=== PATIENT | male | born 1945 | race Caucasian/White ===

== ENCOUNTER 2016-09-12 21:49 | Emergency (ER) | payer BC, MEDICARE ==
[~2016-09-12] VITALS: Ht 168.9 cm; Wt 105.5 kg
[~2016-09-12 21:49] MED LIST: ALFU10TA19; AMLO2.5T PO; ASPI-557 PO; CHOL400C7; FENO150C4; METF10002; METO25TA6; MULT-57; OMEG300C; PRAS10TA5; PRED10TA23 PO; SERT50TA12; TADA5TAB
--- OUTSIDE RECORDS SUMMARY | 2016-09-12 21:53 | XMS REPORT | Referral Summary ---
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 Name Role Phone Logan Butler Primary Care Physician [phone] Encounter VC Date(s): 03/10/15 - 03/10/15 [facility], Family [address] [place] [id number] Discharge Disposition: 01-Home or Self Care Attending Physician: Zhao Butler MD Admitting Physician: Zhao Butler MD Vital Signs Most recent to 1 oldest [Reference Range]: Blood Pressure 126/78 mmHg [90-140/60-90 mmHg] (03/10/15 10:25 AM) Problem List Condition Effective Dates Status Health Status Informant Atypical Active depression(Confirmed ) Chest 2005 Active pain(Confirmed) Diabetes mellitus 2004 Active type 2(Confirmed) Elevated blood Active pressure (not hypertension)(Confir med) Gout(Confirmed) Active Hearing 2011 Active loss(Confirmed) Hypercholesterolemia 2008 Active (Confirmed) Hypertension(Confirm Active ed) Kidney 2012 Active disease(Confirmed) Obesity(Confirmed) 1978 Active Osteoarthritis(Confi Active rmed) Overweight(Confirmed 1942 Active ) Allergies, Adverse Reactions, Alerts Substance Reaction Severity Status iodine ITCHING/ HIVES Active Medications alfuzosin 10 mg oral tablet, extended release See Instructions, TAKE ONE TABLET BY MOUTH DAILY, # 90 tabs, eRx: [facility] #[id number], TAKE ONE TABLET BY MOUTH DAILY Start Date: 07/30/15 Status: Ordered allopurinol 300 mg oral tablet 1 tabs, Oral, Daily, # 30 tabs, 0 Refill(s) Start Date: 12/23/13 Status: Ordered Amaryl 2 mg oral tablet 1 tabs, Oral, BID, Patient needs labwork done in 3 months., # 60 tabs, 2 Refill( s), Pharmacy: [facility] #[id number], 1 tabs Oral BID,Instr:Patient needs labwork done in 3 months. Start Date: 09/29/14 Status: Ordered Aspir 81 81 mg, Oral, Daily, 0 Refill(s) Start Date: 12/23/13 Status: Ordered Cialis 5 mg oral tablet See Instructions, TAKE ONE TABLET BY MOUTH DAILY, # 30 tabs, 1 Refill(s), eRx: [facility] #[id number], TAKE ONE TABLET BY MOUTH DAILY Start Date: 09/02/15 Status: Ordered Effient 10 mg oral tablet See Instructions, TAKE ONE TABLET BY MOUTH DAILY, # 30 tabs, 2 Refill(s), eRx: [facility] #[id number], TAKE ONE TABLET BY MOUTH DAILY Start Date: 07/17/15 Status: Ordered Fish Oil 1000 mg oral capsule 1 caps, Oral, BID, # 60 caps, 0 Refill(s) Start Date: 12/23/13 Status: Ordered Lipofen 150 mg oral capsule See Instructions, TAKE ONE CAPSULE BY MOUTH DAILY WITH FOOD, # 90 caps, 1 Refill (s), eRx: [facility] #[id number], TAKE ONE CAPSULE BY MOUTH DAILY WITH FOOD Start Date: 05/13/15 Status: Ordered metFORMIN 500 mg oral tablet, extended release See Instructions, TAKE TWO TABLETS BY MOUTH TWICE A DAY, # 120 tabs, 1 Refill(s) , eRx: [facility] #[id number], TAKE TWO TABLETS BY MOUTH TWICE A DAY Start Date: 08/27/15 Status: Ordered Metoprolol Tartrate 25 mg oral tablet See Instructions, TAKE ONE TABLET BY MOUTH TWICE A DAY. TAKE WITH MEALS. Pt needs appointment for more refills, # 60 tabs, 0 Refill(s), Pharmacy: [facility] #[id number], TAKE ONE TABLET BY MOUTH TWICE A DAY. TAKE WITH MEALS. Pt needs appointmen... Start Date: 09/11/15 Status: Ordered Norvasc 2.5 mg oral tablet See Instructions, TAKE ONE TABLET BY MOUTH ONE TIME A DAY, # 30 tabs, eRx: [facility] #[id number], TAKE ONE TABLET BY MOUTH ONE TIME A DAY Start Date: 08/27/15 Status: Ordered Simcor 500 mg-20 mg oral tablet, extended release See Instructions, TAKE ONE TABLET BY MOUTH EVERY NIGHT AT BEDTIME, # 90 unknown unit, 2 Refill(s), eRx: [facility] #[id number], TAKE ONE TABLET BY MOUTH EVERY NIGHT AT BEDTIME Start Date: 03/17/15 Status: Ordered Vitamin D3 5000 intl units oral tablet 1 tabs, Oral, Daily, # 100 tabs, 0 Refill(s) Start Date: 12/23/13 Status: Ordered Zoloft 100 mg oral tablet See Instructions, TAKE ONE TABLET BY MOUTH DAILY, # 30 tabs, 3 Refill(s), eRx: [facility] #[id number], TAKE ONE TABLET BY MOUTH DAILY Start Date: 08/18/15 Status: Ordered Results Chemistry Most recent to 1 oldest [Reference Range]: Sodium Lvl [135-144 141 mEq/L mEq/L] (03/10/15 10:58 AM) Potassium Lvl 4.4 mEq/L [3.5-5.2 mEq/L] (03/10/15 10:58 AM) Chloride [99-111 105 mEq/L mEq/L] (03/10/15 10:58 AM) CO2 [23-31 mEq/L] 27 mEq/L (03/10/15 10:58 AM) AGAP [3-20] 9 (03/10/15 10:58 AM) BUN [8-26 mg/dL] 16 mg/dL (03/10/15 10:58 AM) Glucose Lvl [70-99 278 mg/dL mg/dL] *HI* (03/10/15 10:58 AM) Creatinine Lvl 1.22 mg/dL [0.72-1.25 mg/dL] (03/10/15 10:58 AM) eGFR [>60 mL/min] 58 mL/min 1 *ABN* (03/10/15 10:58 AM) Calcium Lvl 9.6 mg/dL [8.9-10.5 mg/dL] (03/10/15 10:58 AM) 1Result Comment: Multiply eGFR results by 1.21 for race. Immunizations Vaccine Date Refusal Reason influenza virus vaccine, inactivated 03/07/14 pneumococcal 23-polyvalent vaccine 04/21/10 Procedures Procedure Date Related Diagnosis Body Site Collection of venous blood by venipuncture 03/10/15 Collection of venous blood by venipuncture 03/10/15 Collection of venous blood by venipuncture 03/10/15 Angioplasty Cardiac catheterization x5 Stent x3 Social History Social History Type Response Smoking Status Former smoker; Type: Cigarettes Assessment and Plan Extracted from: Title: Ambulatory Patient Education Author: Zhao Butler MD Date: 03/10/15 Family [facility] Depression Depression refers to feeling sad, low, down in the dumps, blue, gloomy, or empty. In general, there are two kinds of depression: 1. Normal sadness or normal grief. This kind of depression is one that we all feel from time to time after upsetting life experiences, such as the loss of a job or the ending of a relationship. This kind of depression is considered normal, is short lived, and resolves within a few days to 2 weeks. Depression experienced after the loss of a loved one (bereavement) often lasts longer than 2 weeks but normally gets better with time. 2. Clinical depression. This kind of depression lasts longer than normal sadness or normal grief or interferes with your ability to function at home, at work, and in school. It also interferes with your personal relationships. It affects almost every aspect of your life. Clinical depression is an illness. Symptoms of depression can also be caused by conditions other than those mentioned above, such as: Physical illness. Some physical illnesses, including underactive thyroid gland (hypothyroidism), severe anemia, specific types of cancer, diabetes, uncontrolled seizures, heart and lung problems, strokes, and chronic pain are commonly associated with symptoms of depression. Side effects of some prescription medicine. In some people, certain types of medicine can cause symptoms of depression. Substance abuse. Abuse of alcohol and illicit drugs can cause symptoms of depression. SYMPTOMS Symptoms of normal sadness and normal grief include the following: Feeling sad or crying for short periods of time. Not caring about anything (apathy). Difficulty sleeping or sleeping too much. No longer able to enjoy the things you used to enjoy. Desire to be by oneself all the time (social isolation). Lack of energy or motivation. Difficulty concentrating or remembering. Change in appetite or weight. Restlessness or agitation. Symptoms of clinical depression include the same symptoms of normal sadness or normal grief and also the following symptoms: Feeling sad or crying all the time. Feelings of guilt or worthlessness. Feelings of hopelessness or helplessness. Thoughts of suicide or the desire to harm yourself (suicidal ideation). Loss of touch with reality (psychotic symptoms). Seeing or hearing things that are not real (hallucinations) or having false beliefs about your life or the people around you (delusions and paranoia). DIAGNOSIS The diagnosis of clinical depression is usually based on how bad the symptoms are and how long they have lasted. Your health care provider will also ask you questions about your medical history and substance use to find out if physical illness, use of prescription medicine, or substance abuse is causing your depression. Your health care provider may also order blood tests. TREATMENT Often, normal sadness and normal grief do not require treatment. However, sometimes antidepressant medicine is given for bereavement to ease the depressive symptoms until they resolve. The treatment for clinical depression depends on how bad the symptoms are but often includes antidepressant medicine, counseling with a mental health professional, or both. Your health care provider will help to determine what treatment is best for you. Depression caused by physical illness usually goes away with appropriate medical treatment of the illness. If prescription medicine is causing depression , talk with your health care provider about stopping the medicine, decreasing the dose, or changing to another medicine. Depression caused by the abuse of alcohol or illicit drugs goes away when you stop using these substances. Some adults need professional help in order to stop drinking or using drugs. SEEK IMMEDIATE MEDICAL CARE IF: You have thoughts about hurting yourself or others. You lose touch with reality (have psychotic symptoms). You are taking medicine for depression and have a serious side effect. FOR MORE INFORMATION National [place] on Mental Illness: www.ezequiel.org National [place] of Mental Health: www.nimh.nih.gov Document Released: 05/19/2001 Document Revised: 10/06/2014 Document Reviewed: [employer] Patient Information 2015 [employer] [facility]. This information is not intended to replace advice given to you by your health care provider. Make sure you discuss any questions you have with your health care provider. How to Avoid Diabetes Problems You can do a lot to prevent or slow down diabetes problems. Following your diabetes plan and taking care of yourself can reduce your risk of serious or life-threatening complications. Below, you will find certain things you can do to prevent diabetes problems. MANAGE YOUR DIABETES Follow your health care provider's, nurse educator's, and dietitian's instructions for managing your diabetes. They will teach you the basics of diabetes care. They can help answer questions you may have. Learn about diabetes and make healthy choices regarding eating and physical activity. Monitor your blood glucose level regularly. Your health care provider will help you decide how often to check your blood glucose level depending on your treatment goals and how well you are meeting them. DO NOT USE NICOTINE Nicotine and diabetes are a dangerous combination. Nicotine raises your risk for diabetes problems. If you quit using nicotine, you will lower your risk for heart attack, stroke, nerve disease, and kidney disease. Your cholesterol and your blood pressure levels may improve. Your blood circulation will also improve. Do not use any tobacco products, including cigarettes, chewing tobacco , or electronic cigarettes. If you need help quitting, ask your health care provider. KEEP YOUR BLOOD PRESSURE UNDER CONTROL Keeping your blood pressure under control will help prevent damage to your eyes , kidneys, heart, and blood vessels. Blood pressure consists of two numbers. The top number should be below 120, and the bottom number should be below 80 ( 120/80). Keep your blood pressure as close to these numbers as you can. If you already have kidney disease, you may want even lower blood pressure to protect your kidneys. Talk to your health care provider to make sure that your blood pressure goal is right for your needs. Meal planning, medicines, and exercise can help you reach your blood pressure target. Have your blood pressure checked at every visit with your health care provider. KEEP YOUR CHOLESTEROL UNDER CONTROL Normal cholesterol levels will help prevent heart disease and stroke. These are the biggest health problems for people with diabetes. Keeping cholesterol levels under control can also help with blood flow. Have your cholesterol level checked at least once a year. Your health care provider may prescribe a medicine known as a statin. Statins lower your cholesterol. If you are not taking a statin, ask your health care provider if you should be. Meal planning, exercise, and medicines can help you reach your cholesterol targets. SCHEDULE AND KEEP YOUR ANNUAL PHYSICAL EXAMS AND EYE EXAMS Your health care provider will tell you how often he or she wants to see you depending on your plan of treatment. It is important that you keep these appointments so that possible problems can be identified early and complications can be avoided or treated. Every visit with your health care provider should include your weight, blood pressure, and an evaluation of your blood glucose control. Your hemoglobin A1c should be checked: At least twice a year if you are at your goal. Every 3 months if there are changes in treatment. If you are not meeting your goals. Your blood lipids should be checked yearly. You should also be checked yearly to see if you have protein in your urine (microalbumin). Schedule a dilated eye exam within 5 years of your diagnosis if you have type 1 diabetes, and then yearly. Schedule a dilated eye exam at diagnosis if you have type 2 diabetes, and then yearly. All exams thereafter can be extended to every 2 to 3 years if one or more exams have been normal. KEEP YOUR VACCINES CURRENT The flu vaccine is recommended yearly. The formula for the vaccine changes every year and needs to be updated for the best protection against current viruses. It is recommended that people with diabetes who are over 65 years old get the pneumonia vaccine. In some cases, two separate shots may be given. Ask your health care provider if your pneumonia vaccination is up-to-date. However, there are some instances where another vaccine is recommended. Check with your health care provider. TAKE CARE OF YOUR FEET Diabetes may cause you to have a poor blood supply (circulation) to your legs and feet. Because of this, the skin may be thinner, break easier, and heal more slowly. You also may have nerve damage in your legs and feet, causing decreased feeling. You may not notice minor injuries to your feet that could lead to serious problems or infections. Taking care of your feet is very important. Visual foot exams are performed at every routine medical visit. The exams check for cuts, injuries, or other problems with the feet. A comprehensive foot exam should be done yearly. This includes visual inspection as well as assessing foot pulses and testing for loss of sensation. You should also do the following: Inspect your feet daily for cuts, calluses, blisters, ingrown toenails, and signs of infection, such as redness, swelling, or pus. Wash and dry your feet thoroughly, especially between the toes. Avoid soaking your feet regularly in hot water baths. Moisturize dry skin with lotion, avoiding areas between your toes. Cut toenails straight across and file the edges. Avoid shoes that do not fit well or have areas that irritate your skin. Avoid going barefooted or wearing only socks. Your feet need protection. TAKE CARE OF YOUR TEETH People with poorly controlled diabetes are more likely to have gum (periodontal ) disease. These infections make diabetes harder to control. Periodontal diseases, if left untreated, can lead to tooth loss. [place] your teeth twice a day, floss, and see your dentist for checkups and cleaning every 6 months, or 2 times a year. ASK YOUR HEALTH CARE PROVIDER ABOUT TAKING ASPIRIN Taking aspirin daily is recommended to help prevent cardiovascular disease in people with and without diabetes. Ask your health care provider if this would benefit you and what dose he or she would recommend. DRINK RESPONSIBLY Moderate amounts of alcohol (less than 1 drink per day for adult women and less than 2 drinks per day for adult men) have a minimal effect on blood glucose if ingested with food. It is important to eat food with alcohol to avoid hypoglycemia. People should avoid alcohol if they have a history of alcohol abuse or dependence, if they are , and if they have liver disease, pancreatitis, advanced neuropathy, or severe hypertriglyceridemia. LESSEN STRESS Living with diabetes can be stressful. When you are under stress, your blood glucose may be affected in two ways: Stress hormones may cause your blood glucose to rise. You may be distracted from taking good care of yourself. It is a good idea to be aware of your stress level and make changes that are necessary to help you better manage challenging situations. Support groups, planned relaxation, a hobby you enjoy, meditation, healthy relationships, and exercise all work to lower your stress level. If your efforts do not seem to be helping, get help from your health care provider or a trained mental health professional. Document Released: 02/07/2012 Document Revised: 10/06/2014 Document Reviewed: [facility] Patient Information 2015 [facility], [facility]. This information is not intended to replace advice given to you by your health care provider. Make sure you discuss any questions you have with your health care provider. No follow up information was provided. Extracted from: Title: Office Visit Note Author: Zhao Butler MD Date: 03/10/15 Assessment/Plan Atypical depression Will increase the Zoloft to 100mg daily and follow up in one month. Ordered: Office Visit Level 3 Est 77175 Diabetes mellitus type 2 Continue the current medications and encouraged to check sugars. Ordered: Hemoglobin A1c Office Visit Level 3 Est 90539 Hypercholesterolemia Ordered: Cholesterol HDL LDL Direct Office Visit Level 3 Est 55192 Triglycerides Hypertension Ordered: Comprehensive Metabolic Panel Office Visit Level 3 Est 67392 Uric Acid Orders: sertraline, 100 mg 1 tabs, Oral, Daily, # 30 tabs, 4 Refill(s), Pharmacy: [facility] #[id number], 1 tabs Oral Daily
--- OUTSIDE RECORDS SUMMARY | 2016-09-12 21:53 | XMS REPORT | Referral Summary ---
Author Author [facility] Organization [facility] Address Unknown Phone Unavailable Care Team Providers Care Emd Teacher Name Role Phone Logan Butler Primary Care Physician [phone] Encounter VC Date(s): 12/24/15 - 12/24/15 [facility] Family [address] [place] [id number] Discharge Diagnosis: Diabetes mellitus type 2 Discharge Disposition: 01-Home or Self Care Attending Physician: Zhao Butler MD Admitting Physician: Zhao Butler MD Vital Signs Most recent to 1 oldest [Reference Range]: Peripheral Pulse 72 bpm Rate [60-100 bpm] (12/24/15 2:30 PM) Blood Pressure 138/70 mmHg [90-140/60-90 mmHg] (12/24/15 2:30 PM) Problem List Condition Effective Dates Status Health Status Informant Atypical Active depression(Confirmed ) Chest 2004 Active pain(Confirmed) Diabetes mellitus 2004 Active type 2(Confirmed) Elevated blood Active pressure (not hypertension)(Confir med) Gout(Confirmed) Active Hearing 2010 Active loss(Confirmed) Hypercholesterolemia 2007 Active (Confirmed) Hypertension(Confirm Active ed) Kidney 2011 Active disease(Confirmed) Obesity(Confirmed) 1978 Active Osteoarthritis(Confi Active rmed) Overweight(Confirmed 194 Active ) Allergies, Adverse Reactions, Alerts Substance Reaction Severity Status iodine ITCHING/ HIVES Active Medications alfuzosin 10 mg oral tablet, extended release See Instructions, TAKE ONE TABLET BY MOUTH DAILY, # 90 tabs, eRx: [email or web address] #[id number], TAKE ONE TABLET BY MOUTH DAILY Start Date: 10/28/15 Status: Ordered amLODIPine 2.5 mg oral tablet See Instructions, TAKE ONE TABLET BY MOUTH ONE TIME A DAY, # 30 tabs, 5 Refill(s ), eRx: [email or web address] #[id number], TAKE ONE TABLET BY MOUTH ONE TIME A DAY Start Date: 12/04/15 Status: Ordered Aspir 81 81 mg, Oral, Daily, 0 Refill(s) Start Date: 12/23/13 Status: Ordered Cialis 5 mg oral tablet See Instructions, TAKE ONE TABLET BY MOUTH DAILY, # 30 tabs, eRx: [facility] #[id number], TAKE ONE TABLET BY MOUTH DAILY Start Date: 12/24/15 Status: Ordered Effient 10 mg oral tablet See Instructions, TAKE ONE TABLET BY MOUTH DAILY, # 30 tabs, eRx: [facility] #[id number], TAKE ONE TABLET BY MOUTH DAILY Start Date: 12/14/15 Status: Ordered fenofibrate 150 mg oral capsule See Instructions, TAKE ONE CAPSULE BY MOUTH DAILY WITH FOOD, # 90 caps, eRx: [facility] #[id number], TAKE ONE CAPSULE BY MOUTH DAILY WITH FOOD Start Date: 10/28/15 Status: Ordered Fish Oil 1000 mg oral capsule 1 caps, Oral, BID, # 60 caps, 0 Refill(s) Start Date: 12/23/13 Status: Ordered glimepiride 4 mg oral tablet See Instructions, TAKE ONE TABLET BY MOUTH DAILY, # 30 tabs, eRx: [facility] #[id number], TAKE ONE TABLET BY MOUTH DAILY Start Date: 12/14/15 Status: Ordered metFORMIN 500 mg oral tablet, extended release See Instructions, TAKE TWO TABLETS BY MOUTH TWICE A DAY, # 120 tabs, 2 Refill(s) , eRx: [facility] #[id number], TAKE TWO TABLETS BY MOUTH TWICE A DAY Start Date: 12/22/15 Status: Ordered Metoprolol Tartrate 25 mg oral tablet See Instructions, TAKE ONE TABLET BY MOUTH TWICE A DAY, WITH MEALS - NEEDS AN APPOINTMENT FOR MORE REFILLS., # 60 tabs, eRx: [facility] #[id number], TAKE ONE TABLET BY MOUTH TWICE A DAY, WITH MEALS - NEEDS AN APPOINTMENT FOR MORE REFILLS. Start Date: 12/14/15 Status: Ordered sertraline 100 mg oral tablet See Instructions, TAKE ONE TABLET BY MOUTH DAILY, # 30 tabs, 2 Refill(s), eRx: [facility] #[id number], TAKE ONE TABLET BY MOUTH DAILY Start Date: 12/14/15 Status: Ordered Simcor 500 mg-20 mg oral tablet, extended release See Instructions, TAKE ONE TABLET BY MOUTH EVERY NIGHT AT BEDTIME, # 90 unknown unit, 1 Refill(s), eRx: [facility] #[id number], TAKE ONE TABLET BY MOUTH EVERY NIGHT AT BEDTIME Start Date: 12/14/15 Status: Ordered Kaci BakeroStar 300 units/mL subcutaneous solution 13 units, SubCutaneous, Daily, # 4 mL, 2 Refill(s), Pharmacy: [facility] # [id number], Pt has savings card, 13 units SubCutaneous Daily Start Date: 12/24/15 Status: Ordered Results No data available for this section Immunizations Vaccine Date Refusal Reason influenza virus vaccine, inactivated 03/07/14 pneumococcal 23-polyvalent vaccine 04/21/10 Procedures Procedure Date Related Diagnosis Body Site Appendectomy 194 Angioplasty Cardiac catheterization x5 Stent x3 Social History Social History Type Response Smoking Status Former smoker; Type: Cigarettes Assessment and Plan Extracted from: Title: Ambulatory Patient Education Author: Karina Kam PA-C Date : 12/24/15 Family Medicine Insulin Treatment for Diabetes Diabetes is a disease that does not go away (chronic). It occurs when the body does not properly use the sugar (glucose) that is released from food after it is digested. Glucose levels are controlled by a hormone called insulin, which is made by your pancreas. Depending on the type of diabetes you have, either of the following will apply: The pancreas does not make any insulin (type 1 diabetes). The pancreas makes too little insulin, and the body cannot respond normally to the insulin that is made (type 2 diabetes). Without insulin, can occur. However, with the addition of insulin, blood sugar monitoring, and treatment, someone with diabetes can live a full and productive life. This document will discuss the role of insulin in your treatment and provide information about its use. HOW IS INSULIN GIVEN? Insulin is a medicine that can only be given by injection. Taking it by mouth makes it inactive because of the acid in your stomach. Insulin is injected under the skin by a syringe and needle, an insulin pen, a pump, or a jet injector. Your dose will be determined by your health care provider based on your individual needs. You will also be given guidance on which method of giving insulin is right for you. Remember that if you give insulin with a needle and syringe, you must do so using only a special insulin syringe made for this purpose. WHERE ON THE BODY SHOULD INSULIN BE INJECTED? Insulin is injected into the fatty layer of tissue just under your skin. Good places to inject insulin include the upper arm, the front and outer area of the thigh, the hips, and the abdomen. Giving your insulin in the abdomen is preferred because this provides the most rapid and consistent absorption. Avoid the area 2 inches (5 cm) around the navel and avoid injecting into areas on your body with scar tissue. In addition, it is important to rotate your injection sites with every shot to prevent irritation and improve absorption. WHAT ARE THE DIFFERENT TYPES OF INSULIN? If you have type 1 diabetes, you must take insulin to stay alive. Your body does not produce it. If you have type 2 diabetes, you might require insulin in addition to, or instead of, other medicines. In either case, proper use of insulin is critical to control your diabetes. There are a number of different types of insulin. Usually, you will give yourself injections, though others can be trained to give them to you. Some people have an insulin pump that delivers insulin continuously through a tube ( cannula) that is placed under the skin. Using insulin requires that you check your blood sugar several times a day. The exact number of times and time of day to check will vary depending on your type of diabetes, your type of insulin, and treatment goals. Your health care provider will direct you. Generally, different insulins have different properties. The following is a general guide. Specifics will vary by product, and new products are introduced periodically. Rapid-acting insulin starts working quickly (in as little as 5 minutes) and wears off in 4 to 6 hours (sometimes longer). This type of insulin works well when taken just before a meal to bring your blood sugar quickly back to normal. Short-acting insulin starts working in about 30 minutes and can last 6 to 10 hours. This type of insulin should be taken about 30 minutes before you start eating a meal. Intermediate-acting insulin starts working in 1-2 hours and wears off after about 10 to 18 hours. This insulin will lower your blood sugar for a longer period of time, but it will not be as effective in lowering your blood sugar right after a meal. Long-acting insulin mimics the small amount of insulin that your pancreas usually produces throughout the day. You need to have some insulin present at all times. It is crucial to the metabolism of brain cells and other cells. Long-acting insulin is meant to be used either once or twice a day. It is usually used in combination with other types of insulin, or in combination with other diabetes medicines. Discuss the type of insulin you are taking with your health care provider or pharmacist. You will then be aware of when the insulin can be expected to peak and when it will wear off. This is important to know so you can plan for meal times and periods of exercise. Your health care provider will usually have a strategy in mind when treating you with insulin. This will vary with your type of diabetes, your diabetes treatment goals, and your health history. It is important that you understand this strategy so you can be an active partner in treating your diabetes. Here are some terms you might hear: Basal insulin. This refers to the small amount of insulin that needs to be present in your blood at all times. Sometimes oral medicines will be enough. For other people, and especially for people with type 1 diabetes, insulin is needed. Usually, intermediate-acting or long-acting insulin is used once or twice a day to accomplish this. Prandial (meal-related) insulin. Your blood sugar will rise rapidly after a meal. Rapid-acting or short-acting insulin can be used right before the meal to bring your blood sugar back to normal quickly. You might be instructed to adjust the amount of insulin depending on how much carbohydrate (starch) is in your meal. Corrective insulin. You might be instructed to check your blood sugar at certain times of the day. You then might use a small amount of rapid-acting or short-acting insulin to bring the blood sugar down to normal if it is elevated. Tight control (also called intensive therapy). Tight control means keeping your blood sugar as close to your target as possible and keeping it from going too high after meals. People with tight control of their diabetes are shown to have fewer long-term problems from their diabetes. Glycohemoglobin (also called glyco, glycosylated hemoglobin, hemoglobin A1c, or A1c) level. This measures how well your blood sugar has been controlled during the past 1 to 3 months. It helps your health care provider see how effective your treatment is and decide if any changes are needed. Your health care provider will discuss your target glycohemoglobin level with you. Insulin treatment requires your careful attention. While you are being treated with insulin, you should check your blood glucose at least two times each day. Treatment plans will be different for different people. Some people do well with a simple program. Others require more complicated programs, with multiple insulin injections daily. You will work with your health care provider to develop the best program for you. Regardless of your insulin treatment plan, you must also do your best on weight control, diet and food choices, exercise, blood pressure control, cholesterol control, and stress levels. WHAT ARE THE SIDE EFFECTS OF INSULIN? Although insulin treatment is important, it does have some side effects, such as : Insulin can cause your blood sugar to go too low (hypoglycemia). Weight gain can occur. Improper injection technique can cause hypoglycemia, blood sugar to go too high (hyperglycemia), skin injury or irritation, or other problems. You must learn to inject insulin properly. This information is not intended to replace advice given to you by your health care provider. Make sure you discuss any questions you have with your health care provider. Document Released: 08/18/2009 Document Revised: 06/12/2015 Document Reviewed: [facility] Patient Information 2016 [facility]. Ophthalmology Type 2 Diabetes Mellitus Type 2 diabetes mellitus, often simply referred to as type 2 diabetes, is a long -lasting (chronic) disease. In type 2 diabetes, the pancreas does not make enough insulin (a hormone), the cells are less responsive to the insulin that is made (insulin resistance), or both. Normally, insulin moves sugars from food into the tissue cells. The tissue cells use the sugars for energy. The lack of insulin or the lack of normal response to insulin causes excess sugars to build up in the blood instead of going into the tissue cells. As a result, high blood sugar (hyperglycemia) develops. The effect of high sugar (glucose) levels can cause many complications. Type 2 diabetes was also previously called adult-onset diabetes, but it can occur at any age. RISK FACTORS A person is predisposed to developing type 2 diabetes if someone in the family has the disease and also has one or more of the following primary risk factors: Weight gain, or being overweight or obese. An inactive lifestyle. A history of consistently eating high-calorie foods. Maintaining a normal weight and regular physical activity can reduce the chance of developing type 2 diabetes. SYMPTOMS A person with type 2 diabetes may not show symptoms initially. The symptoms of type 2 diabetes appear slowly. The symptoms include: Increased thirst (polydipsia). Increased urination (polyuria). Increased urination during the night (nocturia). Sudden or unexplained weight changes. Frequent, recurring infections. Tiredness (fatigue). Weakness. Vision changes, such as blurred vision. Fruity smell to your breath. Abdominal pain. Nausea or vomiting. Cuts or bruises which are slow to heal. Tingling or numbness in the hands or feet. DIAGNOSIS Type 2 diabetes is frequently not diagnosed until complications of diabetes are present. Type 2 diabetes is diagnosed when symptoms or complications are present and when blood glucose levels are increased. Your blood glucose level may be checked by one or more of the following blood tests: A fasting blood glucose test. You will not be allowed to eat for at least 8 hours before a blood sample is taken. A random blood glucose test. Your blood glucose is checked at any time of the day regardless of when you ate. A hemoglobin A1c blood glucose test. A hemoglobin A1c test provides information about blood glucose control over the previous 3 months. An oral glucose tolerance test (OGTT). Your blood glucose is measured after you have not eaten (fasted) for 2 hours and then after you drink a glucose -containing beverage. TREATMENT You may need to take insulin or diabetes medicine daily to keep blood glucose levels in the desired range. If you use insulin, you may need to adjust the dosage depending on the carbohydrates that you eat with each meal or snack. Lifestyle changes are recommended as part of your treatment. These may include: Following an individualized diet plan developed by a weaver hand loom or dietitian. Exercising daily. Your health care providers will set individualized treatment goals for you based on your age, your medicines, how long you have had diabetes, and any other medical conditions you have. Generally, the goal of treatment is to maintain the following blood glucose levels: Before meals (preprandial): 47056 mg/dL. After meals (postprandial): below 180 mg/dL. A1c: less than 6.57%. HOME CARE INSTRUCTIONS Have your hemoglobin A1c level checked twice a year. Perform daily blood glucose monitoring as directed by your health care provider. Monitor urine ketones when you are ill and as directed by your health care provider. Take your diabetes medicine or insulin as directed by your health care provider to maintain your blood glucose levels in the desired range. Never run out of diabetes medicine or insulin. It is needed every day. If you are using insulin, you may need to adjust the amount of insulin given based on your intake of carbohydrates. Carbohydrates can raise blood glucose levels but need to be included in your diet. Carbohydrates provide vitamins, minerals, and fiber which are an essential part of a healthy diet. Carbohydrates are found in fruits, vegetables, whole grains, dairy products, legumes, and foods containing added sugars. Eat healthy foods. You should make an appointment to see a registered dietitian to help you create an eating plan that is right for you. Lose weight if you are overweight. Carry a medical alert card or wear your medical alert jewelry. Carry a 15-gram carbohydrate snack with you at all times to treat low blood glucose (hypoglycemia). Some examples of 15-gram carbohydrate snacks include: Glucose tablets, 3 or 4. Glucose gel, 15-gram tube. Raisins, 2 tablespoons (24 grams). Jelly beans, 6. Animal crackers, 8. Regular pop, 4 ounces (120 mL). Gummy treats, 9. Recognize hypoglycemia. Hypoglycemia occurs with blood glucose levels of 70 mg/dL and below. The risk for hypoglycemia increases when fasting or skipping meals, during or after intense exercise, and during sleep. Hypoglycemia symptoms can include: Tremors or shakes. Decreased ability to concentrate. Sweating. Increased heart rate. Headache. Dry mouth. Hunger. Irritability. Anxiety. Restless sleep. Altered speech or coordination. Confusion. Treat hypoglycemia promptly. If you are alert and able to safely swallow , follow the 15:15 rule: Take 1520 grams of rapid-acting glucose or carbohydrate. Rapid-acting options include glucose gel, glucose tablets, or 4 ounces (120 mL) of fruit juice, regular soda, or low-fat milk. Check your blood glucose level 15 minutes after taking the glucose. Take 1520 grams more of glucose if the repeat blood glucose level is still 70 mg/dL or below. Eat a meal or snack within 1 hour once blood glucose levels return to normal. Be alert to feeling very thirsty and urinating more frequently than usual , which are early signs of hyperglycemia. An early awareness of hyperglycemia allows for prompt treatment. Treat hyperglycemia as directed by your health care provider. Engage in at least 150 minutes of moderate-intensity physical activity a week, spread over at least 3 days of the week or as directed by your health care provider. In addition, you should engage in resistance exercise at least 2 times a week or as directed by your health care provider. Try to spend no more than 90 minutes at one time inactive. Adjust your medicine and food intake as needed if you start a new exercise or sport. Follow your sick-day plan anytime you are unable to eat or drink as usual. Do not use any tobacco products including cigarettes, chewing tobacco, or electronic cigarettes. If you need help quitting, ask your health care provider. Limit alcohol intake to no more than 1 drink per day for non women and 2 drinks per day for men. You should drink alcohol only when you are also eating food. Talk with your health care provider whether alcohol is safe for you. Tell your health care provider if you drink alcohol several times a week. Keep all follow-up visits as directed by your health care provider. This is important. Schedule an eye exam soon after the diagnosis of type 2 diabetes and then annually. Perform daily skin and foot care. Examine your skin and feet daily for cuts, bruises, redness, nail problems, bleeding, blisters, or sores. A foot exam by a health care provider should be done annually. [place] your teeth and gums at least twice a day and floss at least once a day. Follow up with your dentist regularly. Share your diabetes management plan with your workplace or school. Keep your immunizations up to date. It is recommended that you receive a flu (influenza) vaccine every year. It is also recommended that you receive a pneumonia (pneumococcal) vaccine. If you are 65 years of age or older and have never received a pneumonia vaccine, this vaccine may be given as a series of two separate shots. Ask your health care provider which additional vaccines may be recommended. Learn to manage stress. Obtain ongoing diabetes education and support as needed. Participate in or seek rehabilitation as needed to maintain or improve independence and quality of life. Request a physical or occupational therapy referral if you are having foot or hand numbness, or difficulties with grooming , dressing, eating, or physical activity. SEEK MEDICAL CARE IF: You are unable to eat food or drink fluids for more than 6 hours. You have nausea and vomiting for more than 6 hours. Your blood glucose level is over 240 mg/dL. There is a change in mental status. You develop an additional serious illness. You have diarrhea for more than 6 hours. You have been sick or have had a fever for a couple of days and are not getting better. You have pain during any physical activity. SEEK IMMEDIATE MEDICAL CARE IF: You have difficulty breathing. You have moderate to large ketone levels. MAKE SURE YOU: Understand these instructions. Will watch your condition. Will get help right away if you are not doing well or get worse. This information is not intended to replace advice given to you by your health care provider. Make sure you discuss any questions you have with your health care provider. Document Released: 05/22/2006 Document Revised: 06/12/2015 Document Reviewed: [facility] Patient Information 2016 [facility]. No follow up information was provided. Extracted from: Title: Office Visit Note- DM f/u Author: Karina Kam PA-C Date: Assessment/Plan Diabetes mellitus type 2 About 15-20 minutes were spent in counseling with the pt. Would like to see BG's more in the 120-140 range. Will increase Toujeo to 13U daily. Pt was given voucher and script sent to pharmacy. D/w pt that I would like to see him back next month and redo A1C, but pt would like to extend this to 3 months from today. Pt is advised to let us know if blood sugars are still not controlled. Continue on metformin and glimepiride. Cut back on sugars and alcohol. Ordered: Office Visit Level 3 Est [id number] Orders: insulin glargine, 13 units, SubCutaneous, Daily, # 4 mL, 2 Refill(s), Pharmacy: [facility] #[id number], Pt has savings card, 13 units SubCutaneous Daily
--- OUTSIDE RECORDS SUMMARY | 2016-09-12 21:53 | XMS REPORT | Referral Summary ---
Author Author [facility], Family Medicine Organization [facility] Address Unknown Phone Unavailable Care Team Providers Care Motel Operator Name Role Phone Logan Butler Primary Care Physician [phone] Encounter VC Date(s): 10/09/15 - 10/09/15 [facility], [address] [place] [id number] Discharge Disposition: 01-Home or Self Care Attending Physician: Zhao Butler MD Admitting Physician: Zhao Butler MD Vital Signs Most recent to 1 oldest [Reference Range]: Peripheral Pulse 67 bpm Rate [60-100 bpm] (10/09/15 10:43 AM) Blood Pressure 124/72 mmHg [90-140/60-90 mmHg] (10/09/15 10:43 AM) SpO2 96 % (10/09/15 10:43 AM) Problem List Condition Effective Dates Status [...] BY MOUTH DAILY, # 90 tabs, eRx: [facility] #[id number], TAKE ONE TABLET BY MOUTH DAILY Start Date: 07/30/15 Status: Ordered Amaryl 2 mg oral tablet 1 tabs, Oral, BID, Patient needs labwork done in 3 months., # 60 tabs, 2 Refill( s), Pharmacy: [facility] #[id number], 1 tabs Oral BID,Instr:Patient needs labwork done in 3 months. Start Date: 09/29/14 Status: Ordered amLODIPine 2.5 mg oral tablet See Instructions, TAKE ONE TABLET BY MOUTH ONE TIME A DAY, # 30 tabs, eRx: [facility] #[id number], TAKE ONE TABLET BY MOUTH ONE TIME A DAY Start Date: 09/30/15 Status: Ordered Aspir 81 81 mg, Oral, Daily, 0 Refill(s) Start Date: 12/23/13 Status: Ordered Cialis 5 mg oral tablet See Instructions, TAKE ONE TABLET BY MOUTH DAILY, # 30 tabs, 1 Refill(s), eRx: [facility] #[id number], TAKE ONE TABLET BY MOUTH DAILY Start Date: 09/02/15 Status: Ordered Effient 10 mg oral tablet See Instructions, TAKE ONE TABLET BY MOUTH DAILY, # 30 tabs, 2 Refill(s), eRx: [facility] #[id number], TAKE ONE TABLET BY MOUTH DAILY Start Date: 07/17/15 Status: Ordered Fish Oil 1000 mg oral capsule 1 caps, Oral, BID, # 60 caps, 0 Refill(s) Start Date: 12/23/13 Status: Ordered Lipofen 150 mg oral capsule See Instructions, TAKE ONE CAPSULE BY MOUTH DAILY WITH FOOD, # 90 caps, 1 Refill (s), eRx: [facility] #[id number], TAKE ONE CAPSULE BY MOUTH DAILY WITH FOOD Start Date: 05/13/15 Status: Ordered metFORMIN 500 mg oral tablet, extended release See Instructions, TAKE TWO TABLETS BY MOUTH TWICE A DAY, # 120 tabs, 1 Refill(s) , eRx: [facility] #[id number], TAKE TWO TABLETS BY MOUTH TWICE A DAY Start Date: 08/27/15 Status: Ordered Metoprolol Tartrate 25 mg oral tablet See Instructions, TAKE ONE TABLET BY MOUTH TWICE A DAY. TAKE WITH MEALS. Pt needs appointment for more refills, # 60 tabs, 0 Refill(s), Pharmacy: [facility] #[id number], TAKE ONE TABLET BY MOUTH TWICE A DAY. TAKE WITH MEALS. Pt needs appointmen... Start Date: 09/11/15 Status: Ordered Simcor 500 mg-20 mg oral tablet, extended release See Instructions, TAKE ONE TABLET BY MOUTH EVERY NIGHT AT BEDTIME, # 90 unknown unit, 2 Refill(s), eRx: [facility] #[id number], TAKE ONE TABLET BY MOUTH EVERY NIGHT AT BEDTIME Start Date: 03/17/15 Status: Ordered Zoloft 100 mg oral tablet See Instructions, TAKE ONE TABLET BY MOUTH DAILY, # 30 tabs, 3 Refill(s), eRx: [facility] #[id number], TAKE ONE TABLET BY MOUTH DAILY Start Date: 08/18/15 Status: Ordered Results No data available for this section Immunizations Vaccine Date Refusal Reason influenza virus vaccine, inactivated 03/07/14 pneumococcal 23-polyvalent vaccine 04/21/10 Procedures Procedure Date Related Diagnosis Body Site Angioplasty Cardiac catheterization x5 Stent x3 Social History Social History Type Response Smoking Status Former smoker; Type: Cigarettes Assessment and Plan Extracted from: Title: Ambulatory Patient Education Author: Zhao Butler MD Date: 10/08 Family Medicine Depression Depression is feeling sad, low, down in the dumps, blue, gloomy, or empty. In general, there are two kinds of depression: Normal sadness or grief. This can happen after something upsetting. It often goes away on its own within 2 weeks. After losing a loved one (bereavement ), normal sadness and grief may last longer than two weeks. It usually gets better with time. Clinical depression. This kind lasts longer than normal sadness or grief. It keeps you from doing the things you normally do in life. It is often hard to function at home, work, or at school. It may affect your relationships with others. Treatment is often needed. GET HELP RIGHT AWAY IF: You have thoughts about hurting yourself or others. You lose touch with reality (psychotic symptoms). You may: See or hear things that are not real. Have untrue beliefs about your life or people around you. Your medicine is giving you problems. MAKE SURE YOU: Understand these instructions. Will watch your condition. Will get help right away if you are not doing well or get worse. This information is not intended to replace advice given to you by your health care provider. Make sure you discuss any questions you have with your health care provider. Document Released: 06/24/2011 Document Revised: 10/06/2014 Document Reviewed: ExitCare Patient Information 2015 [employer]. Tips for Eating Away From Home If You Have Diabetes Controlling your level of blood glucose, also known as blood sugar, can be challenging. It can be even more difficult when you do not prepare your own meals. The following tips can help you manage your diabetes when you eat away from home. PLANNING AHEAD Plan ahead if you know you will be eating away from home: Ask your health care provider how to time meals and medicine if you are taking insulin. Make a list of restaurants near you that offer healthy choices. If they have a carry-out menu, take it home and plan what you will order ahead of time. Look up the restaurant you want to eat at online. Many chain and fast- food restaurants list nutritional information online. Use this information to choose the healthiest options and to calculate how many carbohydrates will be in your meal. Use a carbohydrate-counting book or mobile mildred to look up the carbohydrate content and serving size of the foods you want to eat. Become familiar with serving sizes and learn to recognize how many servings are in a portion. This will allow you to estimate how many carbohydrates you can eat. FREE FOODS A "free food" is any food or drink that has less than 5 g of carbohydrates per serving. Free foods include: Many vegetables. Hard boiled eggs. Nuts or seeds. Olives. Cheeses. Meats. These types of foods make good appetizer choices and are often available at salad bars. Lemon juice, vinegar, or a low-calorie salad dressing of fewer than 20 calories per serving can be used as a "free" salad dressing. CHOICES TO REDUCE CARBOHYDRATES Substitute nonfat sweetened yogurt with a sugar-free yogurt. Yogurt made from soy milk may also be used, but you will still want a sugar-free or plain option to choose a lower carbohydrate amount. Ask your sql server bi developer to take away the bread basket or chips from your table. Order fresh fruit. A salad bar often offers fresh fruit choices. Avoid canned fruit because it is usually packed in sugar or syrup. Order a salad, and eat it without dressing. Or, create a "free" salad dressing. Ask for substitutions. For example, instead of Turkish fries, request an order of a vegetable such as salad, green beans, or broccoli. OTHER TIPS If you take insulin, take the insulin once your food arrives to your table. This will ensure your insulin and food are timed correctly. Ask your sql server bi developer about the portion size before your order, and ask for a take-out box if the portion has more servings than you should have. When your food comes, leave the amount you should have on the plate, and put the rest in the take-out box. Consider splitting an entre with someone and ordering a side salad. This information is not intended to replace advice given to you by your health care provider. Make sure you discuss any questions you have with your health care provider. Document Released: 05/22/2006 Document Revised: 03/10/2015 Document Reviewed: ExitCare Patient Information 2015 [employer]. Health and Wellness DASH Eating Plan DASH stands for "Dietary Approaches to Stop Hypertension." The DASH eating plan is a healthy eating plan that has been shown to reduce high blood pressure ( hypertension). Additional health benefits may include reducing the risk of type 2 diabetes mellitus, heart disease, and stroke. The DASH eating plan may also help with weight loss. WHAT DO I NEED TO KNOW ABOUT THE DASH EATING PLAN? For the DASH eating plan, you will follow these general guidelines: Choose foods with a percent daily value for sodium of less than 5% (as listed on the food label). Use salt-free seasonings or herbs instead of table salt or sea salt. Check with your health care provider or pharmacist before using salt substitutes. Eat lower-sodium products, often labeled as "lower sodium" or "no salt added." Eat fresh foods. Eat more vegetables, fruits, and low-fat dairy products. Choose whole grains. Look for the word "whole" as the first word in the ingredient list. Choose fish and skinless chicken or turkey more often than red meat. Limit fish, poultry, and meat to 6 oz (170 g) each day. Limit sweets, desserts, sugars, and sugary drinks. Choose heart-healthy fats. Limit cheese to 1 oz (28 g) per day. Eat more home-cooked food and less restaurant, buffet, and fast food. Limit fried foods. Cook foods using methods other than frying. Limit canned vegetables. If you do use them, rinse them well to decrease the sodium. When eating at a restaurant, ask that your food be prepared with less salt, or no salt if possible. WHAT FOODS CAN I EAT? Seek help from a dietitian for individual calorie needs. Grains Whole grain or whole wheat bread. Brown rice. Whole grain or whole wheat pasta. Quinoa, bulgur, and whole grain cereals. Low-sodium cereals. [place] or whole wheat flour tortillas. Whole grain cornbread. Whole grain crackers. Low-sodium crackers. Vegetables Fresh or frozen vegetables (raw, steamed, roasted, or grilled). Low-sodium or reduced-sodium tomato and vegetable juices. Low-sodium or reduced-sodium tomato sauce and paste. Low-sodium or reduced-sodium canned vegetables. Fruits All fresh, canned (in natural juice), or frozen fruits. Meat and Other Protein Products Ground beef (85% or leaner), grass-fed beef, or beef trimmed of fat. Skinless chicken or turkey. Ground chicken or turkey. Pork trimmed of fat. All fish and seafood. Eggs. Dried beans, peas, or lentils. Unsalted nuts and seeds. Unsalted canned beans. Dairy Low-fat dairy products, such as skim or 1% milk, 2% or reduced-fat cheeses, low- fat ricotta or cottage cheese, or plain low-fat yogurt. Low-sodium or reduced- sodium cheeses. Fats and Oils Tub margarines without trans fats. Light or reduced-fat mayonnaise and salad dressings (reduced sodium). Avocado. Safflower, olive, or canola oils. Natural peanut or almond butter. Other Unsalted popcorn and pretzels. The items listed above may not be a complete list of recommended foods or beverages. Contact your dietitian for more options. WHAT FOODS ARE NOT RECOMMENDED? Grains White bread. White pasta. White rice. Refined cornbread. Bagels and croissants. Crackers that contain trans fat. Vegetables Creamed or fried vegetables. Vegetables in a cheese sauce. Regular canned vegetables. Regular canned tomato sauce and paste. Regular tomato and vegetable juices. Fruits Dried fruits. Canned fruit in light or heavy syrup. Fruit juice. Meat and Other Protein Products Fatty cuts of meat. Ribs, chicken wings, parrish, sausage, bologna, salami, chitterlings, fatback, hot dogs, bratwurst, and packaged luncheon meats. Salted nuts and seeds. Canned beans with salt. Dairy Whole or 2% milk, cream, [id number], and cream cheese. Whole-fat or sweetened yogurt. Full-fat cheeses or blue cheese. Nondairy creamers and whipped toppings. Processed cheese, cheese spreads, or cheese curds. Condiments Onion and garlic salt, seasoned salt, table salt, and sea salt. Canned and packaged gravies. Worcestershire sauce. Tartar sauce. Barbecue sauce. Teriyaki sauce. Soy sauce, including reduced sodium. Steak sauce. Fish sauce. Oyster sauce. Cocktail sauce. Horseradish. Ketchup and mustard. Meat flavorings and tenderizers. Bouillon cubes. Hot sauce. Tabasco sauce. Marinades. Taco seasonings. Relishes. Fats and Oils Butter, stick margarine, lard, shortening, ghee, and parrish fat. Coconut, palm kernel, or palm oils. Regular salad dressings. Other Pickles and olives. Salted popcorn and pretzels. The items listed above may not be a complete list of foods and beverages to avoid. Contact your dietitian for more information. WHERE CAN I FIND MORE INFORMATION? National Heart, Lung, and Blood [place]: www.nhlbi.nih.gov/health/health- topics/topics/dash/ This information is not intended to replace advice given to you by your health care provider. Make sure you discuss any questions you have with your health care provider. Document Released: 05/10/2012 Document Revised: 10/06/2014 Document Reviewed: ExitCare Patient Information 2015 [employer] [facility]. No follow up information was provided. 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 Will follow up next weeks with fasting lab. Ordered: Periodic Comp Preventive Med 65+ years Est 49763 Diabetes mellitus type 2 Encouraged to check blood sugars and strict diet and exercise program. Ordered: Hemoglobin A1c Periodic Comp Preventive Med 65+ years Est 96614 Gout Ordered: Periodic Comp Preventive Med 65+ years Est 07051 Uric Acid Hypercholesterolemia Ordered: Lipid Panel Periodic Comp Preventive Med 65+ years Est 73575 Hypertension Ordered: CBC w/ Differential Comprehensive Metabolic Panel Periodic Comp Preventive Med 65+ years Est 17715 XR Chest 2 Views Orders: Vitamin B12 Level
--- OUTSIDE RECORDS SUMMARY | 2016-09-12 21:54 | XMS REPORT | Continuity of Care Document ---
Author Author [facility] Organization [facility] Address Unknown Phone Unavailable Allergies Active Description Code Type Severity Reaction Onset Reported/Identified Relationship to Patient Clinical Status Yes IV Contrast Drug Allergy ITCHING/ HIVES 03/26/2012 Yes No Known Food Allergies Food Allergy 05/08/2012 Yes iodine NKMA N/A ITCHING/ HIVES 10/03/2013 Medications Problems Date Dx Coded Attending Type Code Diagnosis Diagnosed By 03/26/2012 Aryan Shepard MD Final 592.0 KIDNEY CALCULUS 03/26/2012 Aryan Shepard MD Final V72.63 PRE-PX LABORATORY EXAM 03/26/2012 Aryan Shepard MD Final V72.81 PREOP CV EXAM 04/02/2012 Aryan Shepard MD Final 250.00 DM2/NOS UNCOMP NSU 04/02/2012 Aryan Shepard MD Final 257.2 TESTICULAR HYPOFUNCT NEC 04/02/2012 Aryan Shepard MD Final 274.9 GOUT NOS 04/02/2012 Aryan Shepard MD Final 278.00 OBESITY NOS 04/02/2012 Aryan Shepard MD Final 401.9 HYPERTENSION NOS 04/02/2012 Aryan Shepard MD Final 414.01 COR -BISHOP PAIUTE VESSEL 04/02/2012 Aryan Shepard MD Final 592.0 KIDNEY CALCULUS 04/02/2012 Aryan Shepard MD Final 600.01 PROS HYPERTR W OBST/LUTS 04/02/2012 Aryan Shepard MD Final 608.89 OTH MALE GENITAL DISORD 04/02/2012 Aryan Shepard MD Final V85.32 BMI 32.0-32.9 ADULT 05/08/2012 Aryan Shepard MD Final 244.9 HYPOTHYROIDISM NOS 05/08/2012 Aryan Shepard MD Final 278.00 OBESITY NOS 05/08/2012 Aryan Shepard MD Final 401.9 HYPERTENSION NOS 05/08/2012 Aryan Shepard MD Final 414.01 COR -BISHOP PAIUTE VESSEL 05/08/2012 Aryan Shepard MD Final 592.1 URETERAL CALCULUS 05/08/2012 Aryan Shepard MD Final V85.31 BMI 31.0-31.9 ADULT 05/30/2012 Aryan Shepard MD Final 574.20 GB CALCULUS W/O CHOL 05/30/2012 Aryan Shepard MD Final 592.0 KIDNEY CALCULUS 05/30/2012 Aryan Shepard MD Final 594.1 BLADDER CALCULUS NEC 05/30/2012 Aryan Shepard MD Final 600.00 PROS HYPERTR S OBST/LUTS Procedures Code [place] [address] FRAGMENTING OF KIDNEY STONE Aryan Shepard MD 04/02/2012 75256 CYSTOSCOPY AND TREATMENT Aryan Shepard MD 04/02/2012 59828 CYSTOSCOPY AND TREATMENT Aryan Shepard MD 05/08/2012 38351 CYSTOURETERO W/LITHOTRIPSY Aryan Shepard MD 05/08/2012 Results Encounters ACCT No. Visit Date/Time Discharge Status Pt. Type Provider Facility Loc./Unit Complaint [id number] 05/30/2012 07:49:00 2011 23:59:59 CLS Outpatient Aryan Shepard MD [facility] on [place] [id number] 05/08/2012 07:50:00 2011 23:59:59 CLS Outpatient Aryan Shepard MD [facility] on [address] [place] [id number] 04/02/2012 06:06:00 2011 10:50:00 DIS Outpatient Aryan Shepard MD [facility] on [address] [id number] 03/26/2012 12:53:00 2011 23:59:59 CLS Outpatient Aryan Shepard MD [facility] [id number] 05/24/2012 09:08:00 Document Registration
--- OUTSIDE RECORDS SUMMARY | 2016-09-12 21:54 | XMS REPORT | Referral Summary ---
Author Author [facility], Family Medicine Organization [facility] Address Unknown Phone Unavailable Care Team Providers Care Retail Center Receptionist Name Role Phone Logan Butler Primary Care Physician [phone] Encounter VC Date(s): 10/19/15 - 10/19/15 [facility], [address] [place] [id number] Discharge Diagnosis: Diabetes mellitus Discharge Diagnosis: Elevated blood pressure (not hypertension) Discharge Diagnosis: Hypercholesterolemia Discharge Disposition: 01-Home or Self Care Attending Physician: Zhao Butler MD Admitting Physician: Zhao Butler MD Vital Signs Most recent to 1 oldest [Reference Range]: Blood Pressure 126/74 mmHg [90-140/60-90 mmHg] (10/19/15 1:12 PM) Problem List Condition Effective Dates Status Health Status Informant Atypical Active depression(Confirmed ) Chest 2004 Active pain(Confirmed) Diabetes mellitus 2004 Active type 2(Confirmed) Elevated blood Active pressure (not hypertension)(Confir med) Gout(Confirmed) Active Hearing 2010 Active loss(Confirmed) Hypercholesterolemia 2008 Active (Confirmed) Hypertension(Confirm Active ed) Kidney 2011 Active disease(Confirmed) Obesity(Confirmed) 1978 Active Osteoarthritis(Confi Active rmed) Overweight(Confirmed 1943 Active ) Allergies, Adverse Reactions, Alerts Substance Reaction Severity Status iodine ITCHING/ HIVES Active Medications alfuzosin 10 mg oral tablet, extended release See Instructions, TAKE ONE TABLET BY MOUTH DAILY, # 90 tabs, eRx: [facility] #[id number], TAKE ONE TABLET BY MOUTH DAILY Start Date: 07/30/15 Status: Ordered amLODIPine 2.5 mg oral tablet See Instructions, TAKE ONE TABLET BY MOUTH ONE TIME A DAY, # 30 tabs, eRx: [facility] #[id number], TAKE ONE TABLET BY MOUTH ONE TIME A DAY Start Date: 09/30/15 Status: Ordered Aspir 81 81 mg, Oral, Daily, 0 Refill(s) Start Date: 12/23/13 Status: Ordered Cialis 5 mg oral tablet See Instructions, TAKE ONE TABLET BY MOUTH DAILY, # 30 tabs, 1 Refill(s), eRx: [facility] #[id number], TAKE ONE TABLET BY MOUTH DAILY Start Date: 09/02/15 Status: Ordered Effient 10 mg oral tablet See Instructions, TAKE ONE TABLET BY MOUTH DAILY, # 30 tabs, 1 Refill(s), eRx: [facility] #[id number], TAKE ONE TABLET BY MOUTH DAILY Start Date: 10/14/15 Status: Ordered Fish Oil 1000 mg oral capsule 1 caps, Oral, BID, # 60 caps, 0 Refill(s) Start Date: 12/23/13 Status: Ordered glimepiride 4 mg oral tablet 4 mg 1 tabs, Oral, Daily, dc order for 2 mg tab, # 30 tabs, 0 Refill(s), Pharmacy: [facility] #[id number], 1 tabs Oral Daily,Instr:dc order for 2 mg tab Start Date: 10/19/15 Status: Ordered Lipofen 150 mg oral capsule See Instructions, TAKE ONE CAPSULE BY MOUTH DAILY WITH FOOD, # 90 caps, 1 Refill (s), eRx: [facility] #[id number], TAKE ONE CAPSULE BY MOUTH DAILY WITH FOOD Start Date: 05/13/15 Status: Ordered metFORMIN 500 mg oral tablet, extended release See Instructions, TAKE TWO TABLETS BY MOUTH TWICE A DAY, # 120 tabs, 1 Refill(s) , eRx: [facility] #[id number], TAKE TWO TABLETS BY MOUTH TWICE A DAY Start Date: 08/27/15 Status: Ordered Metoprolol Tartrate 25 mg oral tablet See Instructions, TAKE ONE TABLET BY MOUTH TWICE A DAY, WITH MEALS - NEEDS AN APPOINTMENT FOR MORE REFILLS., # 60 tabs, eRx: [facility] #[id number], TAKE ONE TABLET BY MOUTH TWICE A DAY, WITH MEALS - NEEDS AN APPOINTMENT FOR MORE REFILLS. Start Date: 10/14/15 Status: Ordered Simcor 500 mg-20 mg oral tablet, extended release See Instructions, TAKE ONE TABLET BY MOUTH EVERY NIGHT AT BEDTIME, # 90 unknown unit, 2 Refill(s), eRx: [facility] #[id number], TAKE ONE TABLET BY MOUTH EVERY NIGHT AT BEDTIME Start Date: 03/17/15 Status: Ordered Zoloft 100 mg oral tablet See Instructions, TAKE ONE TABLET BY MOUTH DAILY, # 30 tabs, 3 Refill(s), eRx: [facility] #[id number], TAKE ONE TABLET BY MOUTH DAILY Start Date: 08/18/15 Status: Ordered Results No data available for this section Immunizations Vaccine Date Refusal Reason influenza virus vaccine, inactivated 03/07/14 pneumococcal 23-polyvalent vaccine 04/21/10 Procedures Procedure Date Related Diagnosis Body Site Appendectomy 1946 Angioplasty Cardiac catheterization x5 Stent x3 Social History Social History Type Response Smoking Status Former smoker; Type: Cigarettes Assessment and Plan Extracted from: Title: Ambulatory Patient Education Author: Zhao Butler MD Date: Family Medicine Diabetes and Foot Care Diabetes may cause you to have problems because of poor blood supply ( circulation) to your feet and legs. This may cause the skin on your feet to become thinner, break easier, and heal more slowly. Your skin may become dry, and the skin may peel and crack. You may also have nerve damage in your legs and feet causing decreased feeling in them. You may not notice minor injuries to your feet that could lead to infections or more serious problems. Taking care of your feet is one of the most important things you can do for yourself. HOME CARE INSTRUCTIONS Wear shoes at all times, even in the house. Do not go barefoot. Bare feet are easily injured. Check your feet daily for blisters, cuts, and redness. If you cannot see the bottom of your feet, use a mirror or ask someone for help. Wash your feet with warm water (do not use hot water) and mild soap. Then pat your feet and the areas between your toes until they are completely dry. Do not soak your feet as this can dry your skin. Apply a moisturizing lotion or petroleum jelly (that does not contain alcohol and is unscented) to the skin on your feet and to dry, brittle toenails. Do not apply lotion between your toes. Trim your toenails straight across. Do not dig under them or around the cuticle. File the edges of your nails with an emery board or nail file. Do not cut corns or calluses or try to remove them with medicine. Wear clean socks or stockings every day. Make sure they are not too tight. Do not wear knee-high stockings since they may decrease blood flow to your legs. Wear shoes that fit properly and have enough cushioning. To break in new shoes, wear them for just a few hours a day. This prevents you from injuring your feet. Always look in your shoes before you put them on to be sure there are no objects inside. Do not cross your legs. This may decrease the blood flow to your feet. If you find a minor scrape, cut, or break in the skin on your feet, keep it and the skin around it clean and dry. These areas may be cleansed with mild soap and water. Do not cleanse the area with peroxide, alcohol, or iodine. When you remove an adhesive bandage, be sure not to damage the skin around it. If you have a wound, look at it several times a day to make sure it is healing. Do not use heating pads or hot water bottles. They may burn your skin. If you have lost feeling in your feet or legs, you may not know it is happening until it is too late. Make sure your health care provider performs a complete foot exam at least annually or more often if you have foot problems. Report any cuts, sores, or bruises to your health care provider immediately. SEEK MEDICAL CARE IF: You have an injury that is not healing. You have cuts or breaks in the skin. You have an ingrown nail. You notice redness on your legs or feet. You feel burning or tingling in your legs or feet. You have pain or cramps in your legs and feet. Your legs or feet are numb. Your feet always feel cold. SEEK IMMEDIATE MEDICAL CARE IF: There is increasing redness, swelling, or pain in or around a wound. There is a red line that goes up your leg. Pus is coming from a wound. You develop a fever or as directed by your health care provider. You notice a bad smell coming from an ulcer or wound. This information is not intended to replace advice given to you by your health care provider. Make sure you discuss any questions you have with your health care provider. Document Released: 05/19/2001 Document Revised: 01/22/2014 Document Reviewed: [facility] Patient Information 2015 [employer]. Tips for Eating Away From Home If [...] choose a lower carbohydrate amount. Ask your server manager to take away the bread basket or chips from your table. Order fresh fruit. A salad bar often offers fresh fruit choices. Avoid canned fruit because it is usually packed in sugar or syrup. Order a salad, and eat it without dressing. Or, create a "free" salad dressing. Ask for substitutions. For example, instead of Greek fries, request an order of a vegetable such as salad, green beans, or broccoli. OTHER TIPS If you take insulin, take the insulin once your food arrives to your table. This will ensure your insulin and food are timed correctly. Ask your server manager about the portion size before your order, [...] 03/10/2015 Document Reviewed: [employer] Patient Information 2015 [employer]. No follow up information was provided. Extracted from: Title: Office Visit Note Author: Zhao Butler MD Date: 10/19/15 Assessment/Plan Diabetes mellitus Increase the Amaryl to 4mg bid and will start him on Toujeo 10 units. He is to check his blood sugars Fasting and a 1 time 2hour pp daily and call results. Maybe this will get him into check more frequent. Ordered: Office Visit Level 3 Est 35670 Elevated blood pressure (not hypertension) Continue with the current medications. Ordered: Office Visit Level 3 Est 55737 Hypercholesterolemia Ordered: Office Visit Level 3 Est 75078 Orders: glimepiride, 4 mg 1 tabs, Oral, Daily, dc order for 2 mg tab, # 30 tabs, 0 Refill(s), Pharmacy: [facility] #[id number], 1 tabs Oral Daily,Instr: dc order for 2 mg tab
--- OUTSIDE RECORDS SUMMARY | 2016-09-12 21:54 | XMS REPORT | Continuity of Care Document ---
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 - *Symptomatic Gout - *Controlled Obesity - *Stable Renal stones - *Stable Hypertension, Unspecified - *Fair Control Hypercholesterolemia - *Fair Control Diabetes Mellitus Type 2, Uncomplicated - *Fair Control Diabetes Mellitus Type 2, Uncomplicated - *Fair Control CAD, Unspecified - *Chronic Hypercholesterolemia - *Fair Control Hypertension, Unspecified - *Controlled Renal insufficiency - *Acute Hypertension, Unspecified - *Chronic Hypercholesterolemia - *Chronic Diabetes Mellitus Type 2, Uncomplicated - *Fair Control Renal Insufficiency, Acute - Asymptomatic Prostate cancer screening - *Routine Ptosis - *Chronic Dermatochalasis - Improved DMII WO CMP NT ST UNCNTR - PURE HYPERCHOLESTEROLEM - HYPERTENSION NOS - OSTEOARTHROS NOS-UNSPEC - Dermatochalasis - *Chronic Mechanical ptosis - *Chronic Hypercholesterolemia - *Chronic Hypertension, Unspecified - *Chronic Diabetes Mellitus Type 2, Uncomplicated - *Chronic CAD (coronary artery disease) - *Chronic Noninfectious Gastroenteritis - *Acute Diabetes Mellitus Type 2, Uncomplicated - *Poor control Family History Family Member Diagnosis Age At Onset Status Father (Alive) Hypertension (Unknown) Father (Alive) Hyperlipidemia (Unknown) Social History Social History Element Description Quantity alcohol 3 beers Allergies, Adverse Reactions, Alerts Substance Reaction Severity Status IODINE Unknown Medications Medication Instructions Dosage Effective Dates (start - stop) Status Fish Oil [place] 3-6-9 300 mg-1,000 mg capsule,delayed release 2 bid 2012 - Active Vitamin D3 5,000 unit tablet one daily - Active Aspir-81 81 mg tablet,delayed release take 1 tablet (81MG) by oral route every day 81 MG - Active niacin 500 mg tablet take 1 Tablet (500MG) by oral route every day 500 MG - Active Lipofen 150 mg capsule take 1 capsule (150MG) by oral route every day with food 150 MG - Active allopurinol 300 mg tablet take 1 tablet (300MG) by oral route every day 300 MG - Active Effient 10 mg tablet take 1 tablet (10MG) by oral route every day 10 MG - Active Simcor 500 mg-20 mg tablet,extended release take 1 tablet by oral route every day at bedtime 0 - Active alfuzosin ER 10 mg tablet,extended release 24 hr take 1 tablet (10MG) by oral route every day 10 MG - Active Cialis 5 mg tablet take 1 tablet (5MG) by oral route every day 5 MG - Active Norvasc 2.5 mg tablet take 1 tablet (2.5MG) by oral route every day 2.5 MG - Active metoprolol tartrate 25 mg tablet take 1 tablet (25MG) by oral route 2 times every day 25 MG - Active metformin 1,000 mg tablet take 1 tablet (1000MG) by oral route 2 times every day with morning and evening meals 1000 MG - Active Zoloft 50 mg tablet take 1 tablet (50MG) by oral route every day 50 MG Aug - Active erythromycin 5 mg/gram (0.5 %) eye ointment Apply a small amount to the surgical site twice per day. - Active Valium 5 mg tablet Take one tablet by mouth 30 minutes before your scheduled procedure. Bring the other tablet with you to the procedure. - Active Immunizations Vaccine Date Status Comments pneumo (2 yrs or older) (PPV23) completed Results Test Name Date and Time Measure Units Reference Range Abnormal Flag Comments Unknown Vital Signs Date / Time: Height Weight Pulse Rate Blood Pressure Temperature Unknown Procedures Procedure Date Unknown Encounters Encounter Location Date Patient Visit [facility] Ophthamology Patient Visit [facility] Patient Visit [facility] Patient Visit [facility] Patient Visit [facility] Patient Visit [facility] Patient Visit [facility] Patient Visit [facility] Patient Visit [facility] Patient Visit [facility]hthamology Patient Visit [facility] Ophthamology Patient Visit [facility] Patient Visit [facility] Ophthamology Patient Visit [facility] Patient Visit [facility] Patient Visit [facility] Advance Directives Directive Effective Date Unknown
--- OUTSIDE RECORDS SUMMARY | 2016-09-12 21:54 | XMS REPORT | Referral Summary ---
Author Author [facility] Family Medicine Organization [facility] Address Unknown Phone Unavailable Care Team Providers Care Emt Basic Name Role Phone Logan Butler Primary Care Physician [phone] Encounter VC Date(s): 04/12/16 - 04/12/16 [facility], [address] [place] [id number] Discharge Diagnosis: Diabetes mellitus type 2 Discharge Diagnosis: Hypercholesterolemia Discharge Diagnosis: Hypertension Discharge Disposition: 01-Home or Self Care Attending Physician: Zhao Butler MD Admitting Physician: Zhao Butler MD Vital Signs Most recent to 1 oldest [Reference Range]: Blood Pressure 126/68 mmHg [90-140/60-90 mmHg] (04/12/16 11:02 AM) Problem List Condition Effective Dates Status [...] BY MOUTH DAILY, # 90 tabs, eRx: [facility] #[id number], TAKE ONE TABLET BY MOUTH DAILY Start Date: 01/22/16 Status: Ordered amLODIPine 2.5 mg oral tablet See Instructions, TAKE ONE TABLET BY MOUTH ONE TIME A DAY, # 30 tabs, 5 Refill(s ), eRx: [facility] #[id number], TAKE ONE TABLET BY MOUTH ONE TIME A DAY Start Date: 12/04/15 Status: Ordered Aspir 81 81 mg, Oral, Daily, 0 Refill(s) Start Date: 12/23/13 Status: Ordered Cialis 5 mg oral tablet See Instructions, TAKE ONE TABLET BY MOUTH DAILY, # 30 tabs, eRx: [facility] #[id number], TAKE ONE TABLET BY MOUTH DAILY Start Date: 04/01/16 Status: Ordered Effient 10 mg oral tablet See Instructions, TAKE ONE TABLET BY MOUTH DAILY, # 30 tabs, eRx: [facility] #[id number], TAKE ONE TABLET BY MOUTH DAILY Start Date: 03/15/16 Status: Ordered fenofibrate 150 mg oral capsule See Instructions, TAKE ONE CAPSULE BY MOUTH DAILY WITH FOOD, # 90 caps, eRx: [facility] #[id number], TAKE ONE CAPSULE BY MOUTH DAILY WITH FOOD Start Date: 02/09/16 Status: Ordered Fish Oil 1000 mg oral capsule 1 caps, Oral, BID, # 60 caps, 0 Refill(s) Start Date: 12/23/13 Status: Ordered glimepiride 4 mg oral tablet See Instructions, TAKE ONE TABLET BY MOUTH DAILY, # 30 tabs, eRx: [facility] #[id number], TAKE ONE TABLET BY MOUTH DAILY Start Date: 03/15/16 Status: Ordered metFORMIN 500 mg oral tablet, extended release See Instructions, TAKE TWO TABLETS BY MOUTH TWICE A DAY, # 120 tabs, 2 Refill(s) , eRx: [facility] #[id number], TAKE TWO TABLETS BY MOUTH TWICE A DAY Start Date: 04/08/16 Status: Ordered Metoprolol Tartrate 25 mg oral tablet See Instructions, TAKE ONE TABLET BY MOUTH TWICE A DAY, WITH MEALS - NEEDS AN APPOINTMENT FOR MORE REFILLS., # 60 tabs, eRx: [facility] #[id number], TAKE ONE TABLET BY MOUTH TWICE A DAY, WITH MEALS - NEEDS AN APPOINTMENT FOR MORE REFILLS. Start Date: 03/15/16 Status: Ordered sertraline 100 mg oral tablet See Instructions, TAKE ONE TABLET BY MOUTH DAILY, # 30 tabs, 1 Refill(s), eRx: [facility] #[id number], TAKE ONE TABLET BY MOUTH DAILY Start Date: 03/15/16 Status: Ordered Simcor 500 mg-20 mg oral tablet, extended release See Instructions, TAKE ONE TABLET BY MOUTH EVERY NIGHT AT BEDTIME, # 90 unknown unit, 1 Refill(s), eRx: [facility] #[id number], TAKE ONE TABLET BY MOUTH EVERY NIGHT AT BEDTIME Start Date: 12/14/15 Status: Ordered Toujeo Solo[place] 300 units/mL subcutaneous solution 13 units, SubCutaneous, Daily, # 4 mL, 2 Refill(s), Pharmacy: [facility] # [id number], Pt has savings card, 13 units SubCutaneous Daily Start Date: 04/07/16 Status: Ordered Results Chemistry Most recent to 1 oldest [Reference Range]: Sodium Lvl [135-144 141 mEq/L mEq/L] (04/12/16 11:30 AM) Potassium Lvl 4.3 mEq/L [3.5-5.2 mEq/L] (04/12/16 11:30 AM) Chloride [99-111 107 mEq/L mEq/L] (04/12/16 11:30 AM) CO2 [23-31 mEq/L] 30 mEq/L (04/12/16 11:30 AM) AGAP [3-20] 4 (04/12/16 11:30 AM) BUN [8-26 mg/dL] 16 mg/dL (04/12/16 11:30 AM) Glucose Lvl [70-99 276 mg/dL mg/dL] *HI* (04/12/16 11:30 AM) Creatinine Lvl 1.18 mg/dL [0.72-1.25 mg/dL] (04/12/16 11:30 AM) eGFR [>60 mL/min] >60 mL/min 1 (04/12/16 11:30 AM) Calcium Lvl 9.3 mg/dL [8.9-10.5 mg/dL] (04/12/16 11:30 AM) Trig [0-149 mg/dL] 304 mg/dL *HI* (04/12/16 11:30 AM) Hgb A1c [4.1-5.6 %] 6.8 % *HI* (04/12/16 11:30 AM) eAvg Glucose 148.5 mg/dL (04/12/16 11:30 AM) 1Result Comment: Multiply eGFR results by 1.21 for race. Immunizations Vaccine Date Refusal Reason influenza virus vaccine, inactivated 03/07/14 pneumococcal 23-polyvalent vaccine 04/21/10 Procedures Procedure Date Related Diagnosis Body Site Collection of venous blood by venipuncture 04/12/16 Appendectomy 1947 Angioplasty Cardiac catheterization x5 Stent x3 Social History Social History Type Response Smoking Status Former smoker; Type: Cigarettes Assessment and Plan No data available for this section
--- OUTSIDE RECORDS SUMMARY | 2016-09-12 21:54 | XMS REPORT | Continuity of Care Document ---
Author Author [facility] Organization [facility] Address Unknown Phone Unavailable Support Name Relationship Address Phone FREDI NAVARRETE MD Caregiver [address] [place] [phone] YI CASTILLO MD Caregiver [address] [place] [address] [place] [phone] PRATIMA TUTTLE Next Of Kin [address] [place] [address] Unavailable Insurance Providers Payer Name Policy Number Subscriber Name Relationship [facility] [id number] Pratima Tuttle 01 Spouse Advance Directives Directive Response Recorded Date/Time Advanced Directives Type None 02/21/14 2:06pm Problems 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 Medications Medication Dose Route Sig Days/Qty Instructions Order Date Discontinued Date Status Amlodipine Besylate Unknown Dose PO 30 Qty 02/21/14 Active Sertraline HCl 30 Qty 02/21/14 Active Alfuzosin HCl 90 Qty 02/21/14 Active Prasugrel HCl 30 Qty 02/21/14 Active Metformin HCl 60 Qty 02/21/14 Active Fenofibrate 90 Qty 02/21/14 Active Metoprolol Tartrate 60 Qty 02/21/14 Active Tadalafil 30 Qty 02/21/14 Active Multivitamin Unknown Dose 02/21/14 Active [place]-3 Fatty Acids Unknown Dose 02/21/14 Active Cholecalciferol (Vitamin D3) Unknown Dose 02/21/14 Active Aspirin 1 Tab PO DAILY 02/21/14 Active Prednisone 1 Dose PO DAILY 30 Qty 5 tabs po x 2 days then 4 tabs po x 2 days then 3 tabs po x 02/21/14 Active Social History Social History Problem Response Recorded Date/Time Smoking Status Never smoker 02/21/2014 2:21pm Hx Alcohol Use Y OCC 02/21/2014 2:21pm Hospital Discharge Instructions No hospital discharge instructions. Plan of Care No plan of care. Functional Status Query Response Date Recorded Physical Hygiene Self February 21, 2014 2:21pm Disabilities Hearing February 21, 2014 2:21pm Devices Used Glasses February 21, 2014 2:21pm Dressing Self February 21, 2014 2:21pm Ambulation Self February 21, 2014 2:21pm Diet Self February 21, 2014 2:21pm Mental Status Alert February 21, 2014 3:56pm Disabilities Hearing February 21, 2014 2:21pm Devices Used Glasses February 21, 2014 2:21pm Physical Hygiene Self February 21, 2014 2:21pm Dressing Self February 21, 2014 2:21pm Ambulation Self February 21, 2014 2:21pm Diet Self February 21, 2014 2:21pm Allergies, Adverse Reactions, Alerts Allergen Type Severity Reaction Status Last Updated iodine Allergy Unknown RASH AND ITCHING Active 02/21/14 Immunizations No immunization records. Vital Signs Acute Vital Signs Vital Response Date/Time Temperature (Fahrenheit) 97.0 deg F (96.8 - 99.1) Temperature (Calculated Celsius) 36.02626 degrees C (36.0 - 37.3) Pulse Rate (adult) 68 bpm (60 - 100) Respiratory Rate 18 breaths/min (10 - 20) O2 Sat by Pulse Oximetry 96 % (90 - 100) Blood Pressure 149/73 mm Hg Height 5 ft 7 in Weight 228 lb Body Mass Index 35.0 kg/m^2 Results Test Source Date Result Interp. Ref. Range Comments Alanine Aminotransferase (ALT/SGPT) February 21, 2014 2:30pm 37 U/L N 21-72 Albumin February 21, 2014 2:30pm 4.1 G/DL N 3.5-5.0 Albumin/Globulin Ratio February 21, 2014 2:30pm 1.4 RATIO N 1.1-2.2 Alkaline Phosphatase February 21, 2014 2:30pm 59 U/L N 38-126 Anion Gap February 21, 2014 2:30pm 15 MEQ/L N 5-15 Aspartate Amino Transf (AST/SGOT) February 21, 2014 2:30pm 25 U/L N 17- 59 BUN/Creatinine Ratio February 21, 2014 2:30pm 17 RATIO N 6-26 Basophils # (Auto) February 21, 2014 2:30pm 0.1 T/MM3 N 0-0.2 Basophils (%) (Auto) February 21, 2014 2:30pm 1.0 % N 0-2 Blood Urea Nitrogen February 21, 2014 2:30pm 19.0 MG/DL N 9-20 Calcium Level February 21, 2014 2:30pm 9.3 MG/DL N 8.4-10.2 Calculated Osmolality February 21, 2014 2:30pm 286 MOSM/KG H 261-280 Carbon Dioxide Level February 21, 2014 2:30pm 25 MEQ/L N 22-30 Chloride Level February 21, 2014 2:30pm 104 MEQ/L N 98-107 Creatinine February 21, 2014 2:30pm 1.1 MG/DL N 0.8-1.5 Eosinophils # (Auto) February 21, 2014 2:30pm 0.2 T/MM3 N 0-0.5 Eosinophils (%) (Auto) February 21, 2014 2:30pm 3.5 % N 0-4 Globulin February 21, 2014 2:30pm 3.0 G/DL N 2.4-3.6 Glucose Level February 21, 2014 2:30pm 225 MG/DL H 75-110 Hematocrit February 21, 2014 2:30pm 38.3 % L 41-53 Hemoglobin February 21, 2014 2:30pm 12.6 GM/DL L 13.5-17.5 Lymphocytes # (Auto) February 21, 2014 2:30pm 1.8 T/MM3 N 1-4.8 Lymphocytes (%) (Auto) February 21, 2014 2:30pm 31.8 % N 23-45 Mean Corpuscular Hemoglobin February 21, 2014 2:30pm 29.4 UUG N 26-34 Mean Corpuscular Hemoglobin Concent February 21, 2014 2:30pm 32.9 GM/DL N 31-37 Mean Corpuscular Volume February 21, 2014 2:30pm 89.5 UM3 N 80-100 Mean Platelet Volume February 21, 2014 2:30pm 10.1 UM3 N 9.4-12.4 Monocytes # (Auto) February 21, 2014 2:30pm 0.3 T/MM3 N 0-0.8 Monocytes (%) (Auto) February 21, 2014 2:30pm 5.4 % N 0-9.0 Neutrophils # (Auto) February 21, 2014 2:30pm 3.4 T/MM3 N 1.8-7.7 Neutrophils (%) (Auto) February 21, 2014 2:30pm 58.1 % N 33-66 Platelet Count February 21, 2014 2:30pm 265 T/MM3 N 130-400 Potassium Level February 21, 2014 2:30pm 4.0 MEQ/L N 3.6-5 RDW Standard Deviation February 21, 2014 2:30pm 44.7 FL N 36.9-50.2 Red Blood Count February 21, 2014 2:30pm 4.28 M/MM3 L 4.50-5.90 Sodium Level February 21, 2014 2:30pm 144 MEQ/L N 134-144 Total Bilirubin February 21, 2014 2:30pm 0.50 MG/DL N 0.20-1.30 Total Protein February 21, 2014 2:30pm 7.1 G/DL N 6.3-8.2 Urine Bilirubin February 21, 2014 3:25pm Negative - Has specimen been collected/obtained? Y Urine Blood February 21, 2014 3:25pm Negative - Has specimen been collected/obtained? Y Urine Collection Type February 21, 2014 3:25pm Voided-not cc-midstr - Has specimen been collected/obtained? Y Urine Color February 21, 2014 3:25pm Yellow - Has specimen been collected/obtained? Y Urine Glucose (UA) February 21, 2014 3:25pm 1+ H - Has specimen been collected/obtained? Y Urine Ketones February 21, 2014 3:25pm Negative - Has specimen been collected/obtained? Y Urine Leukocyte Esterase February 21, 2014 3:25pm Negative - Has specimen been collected/obtained? Y Urine Nitrite February 21, 2014 3:25pm Negative - Has specimen been collected/obtained? Y Urine Protein February 21, 2014 3:25pm Negative - Has specimen been collected/obtained? Y Urine Specific [place] February 21, 2014 3:25pm 1.025 - Has specimen been collected/obtained? Y Urine Turbidity February 21, 2014 3:25pm Clear - Has specimen been collected/obtained? Y Urine Urobilinogen February 21, 2014 3:25pm 0.2 EU/DL - Has specimen been collected/obtained? Y Urine pH February 21, 2014 3:25pm 6.5 - Has specimen been collected/ obtained? Y White Blood Count February 21, 2014 2:30pm 5.8 T/MM3 N 4.5-11.0 Chemistry Specimen Hemolysis February 21, 2014 2:30pm < 15 0-25 0-25 : No Hemolysis.26-70: Slight Hemolysis - can falsely elevate K and Urine Protein. 71-285: Moderate Hemolysis - can falsely elevate K, Troponin I, CA 19-9, PTH, CSF GLucose, and Urine Protein, and can falsely decrease Phenytoin. 286-999: Gross Hemolysis - can falsely elevate K, Troponin I, CA 19-9, PTH, CSF Glucose, and Urine Protine, and can falsely decrease Phenytoin. Recommend specimen recollection. Urinalysis Comment February 21, 2014 3:25pm Microscopic not ind. - Has specimen been collected/obtained? Y Glucometer December 24, 2013 3:27pm 283 mg/dL H 75-110 Turbidity February 21, 2014 2:30pm < 20 0-20 Glomerular Filtration Rate Calc February 21, 2014 2:30pm 66 - Immature Granulocyte # (Auto) February 21, 2014 2:30pm 0.01 T/MM3 N 0.00-0.03 Immature Granulocyte % (Auto) February 21, 2014 2:30pm 0.2 % N 0.0-0.5 Icterus Index February 21, 2014 2:30pm < 2 0-7 Gram Stain Leg-Right Lower December 24, 2013 3:55pm Name: SARIAH TUTTLE Unit #: [id number] : 1945 Sex: M Loc / Svc: ED DOS: Signed Report #: [id number] DIAGNOSTIC IMAGING REPORT TYPE OF EXAM: CT HEAD W/O CONTRAST Dictated By: JACOB SAEED MD INDICATION: ITS.REASON: right sided facial droop CT HEAD W/O CONTRAST: Comparison: None Technique: Axial CT images through the head were performed without contrast. FINDINGS: The ventricles are of normal size, shape, and contour for the patient 's age. There are scattered areas of low attenuation in the white matter which most likely represent changes from chronic microvascular ischemia. 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 Additional lacunar infarct adjacent to the left lateral ventricle. Probable chronic small infarcts also in both high parietal lobes. The brainstem, cerebellum, and cerebral hemispheres otherwise have a normal morphology and CT attenuation. There is no evidence of midline displacement. No hemorrhage, signs of acute territorial stroke, mass effect, mass lesions, or edema is evident. The visualized portions of the skull base, midface, and calvarium demonstrate no abnormality. The paranasal sinuses are well aerated and free of significant disease. The tympanic and mastoid cavities appear normal. IMPRESSION: No acute intracranial abnormality or hemorrhage. Multiple small areas of probable old infarct. If there is continued clinical concern for acute ischemia, MRI could be performed for further evaluation. . Procedures No known history of procedures. Encounters Encounter Location Date/Time Departed Emergency Room [facility] 02/21/14 2:04pm Registered [facility] 02/11/14 1:27pm Registered [facility] 01/28/14 2:28pm Registered [facility] 01/20/14 10:56am Registered [facility] 01/16/14 10:59am Registered [facility] 01/13/14 1:56pm Registered [facility] 01/10/14 10:29am Registered [facility] 01/07/14 1:30pm Registered [facility] 01/03/14 9:13am Registered [facility] 12/31/13 1:24pm Registered [facility] 12/27/13 8:52am Registered [facility] 12/25/13 1:56pm Registered [facility] 12/24/13 2:08pm Recent Diagnosis
--- OUTSIDE RECORDS SUMMARY | 2016-09-12 21:54 | XMS REPORT | Continuity of Care Document ---
Author Author Zhao Butler MD Organization Ambulatory Address [address] [place] [address] Phone Care Team Providers Care Airline Attendant Name Role Phone Zhao Butler PP Unavailable Payers Payer name Insurance type Covered constitution party ID Authorization(s) Unknown Problems Condition Effective Dates (start - stop) Clinical Status Hypertension, Unspecified - *Chronic Hypercholesterolemia - *Chronic Diabetes Mellitus Type 2, Uncomplicated - *Fair Control Renal Insufficiency, Acute - Asymptomatic Prostate cancer screening - *Routine Ptosis - *Chronic Gout - *Controlled Obesity - *Stable Renal stones - *Stable Hypertension, Unspecified - *Fair Control Hypercholesterolemia - *Fair Control Diabetes Mellitus Type 2, Uncomplicated - *Fair Control Diabetes Mellitus Type 2, Uncomplicated - *Fair Control CAD, Unspecified - *Chronic Hypercholesterolemia - *Fair Control Hypertension, Unspecified - *Controlled Renal insufficiency - *Acute DMII WO CMP NT ST UNCNTR - PURE HYPERCHOLESTEROLEM - HYPERTENSION NOS - OSTEOARTHROS NOS-UNSPEC - Hypercholesterolemia - *Chronic Hypertension, Unspecified - *Chronic Diabetes Mellitus Type 2, Uncomplicated - *Chronic CAD (coronary artery disease) - *Chronic Family History Family Member Diagnosis Age At Onset Status Father (Alive) Hypertension (Unknown) Father (Alive) Hyperlipidemia (Unknown) Social History Social History Element Description Quantity alcohol 3 beers Allergies, Adverse Reactions, Alerts Substance Reaction Severity Status IODINE Unknown Medications Medication Instructions Dosage Effective Dates (start - stop) Status Cialis 5 mg tablet take 1 tablet (5MG) by oral route every day 5 MG - Active Fish Oil [place] 3-6-9 300 mg-1,000 mg capsule,delayed release 2 [...] route every day 10 MG - Active Zoloft 50 mg tablet take 1 tablet (50MG) by oral route every day 50 MG Jun - Active Norvasc 2.5 mg tablet take 1 tablet (2.5MG) by oral route every day 2.5 MG - Active metoprolol tartrate 25 mg tablet take 1 tablet (25MG) by oral route 2 times every day 25 MG - Active metformin 1,000 mg tablet take 1 tablet (1000MG) by oral route 2 times every day with morning and evening meals 1000 MG - Active Immunizations Vaccine Date Status Comments pneumo (2 yrs or older) (PPV23) completed Results Test Name Date and Time Measure Units Reference Range Abnormal Flag Comments Unknown Vital Signs Date / Time: Height Weight Pulse Rate Blood Pressure Temperature /08:17:00 67.00 in 227.00 lbs 138/80 mm[Hg] 97.0 F Procedures Procedure Date Unknown Encounters Encounter Location Date Patient Visit [facility] Patient Visit [facility] Patient Visit [facility] Patient Visit [facility] Patient Visit [facility] Patient Visit [facility] Patient Visit [facility] Patient Visit [facility] Patient Visit Conversion Patient Visit [facility] Patient Visit [facility] Advance Directives Directive Effective Date Unknown
--- OUTSIDE RECORDS SUMMARY | 2016-09-12 21:54 | XMS REPORT | Referral Summary ---
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 Phone Logan Butler Primary Care Physician [phone] Encounter VC Date(s): 08/05/14 - 08/05/14 [facility] [address] [place] [id number] Discharge Diagnosis: Hypercholesterolemia Discharge Diagnosis: Hypertension Discharge Diagnosis: Diabetes mellitus type 2 Discharge Diagnosis: Gout Discharge Disposition: Home or Self Care Attending Physician: Zhao Butler MD Admitting Physician: Zhao Butler MD Vital Signs Most recent to 1 oldest [Reference Range]: Temperature Tympanic 36.7 degC [36.6-38.1 degC] (08/05/14 11:12 AM) Blood Pressure 130/80 mmHg [90-140/60-90 mmHg] (08/05/14 11:12 AM) Problem List Condition Effective Dates Status Health Status Informant Chest 2004 Active pain(Confirmed) Diabetes mellitus 2004 [...] Instructions, TAKE ONE TABLET BY MOUTH EVERY DAY, # 90 tabs, eRx: [facility] #[id number], TAKE ONE TABLET BY MOUTH EVERY DAY Special Instructions: TAKE ONE TABLET BY MOUTH EVERY DAY Start Date: 05/13/14 Status: Ordered allopurinol 300 mg oral tablet 1 tabs, Oral, Daily, # 30 tabs, 0 Refill(s) Start Date: 12/23/13 Status: Ordered Aspir 81 81 mg, Oral, Daily, 0 Refill(s) Start Date: 12/23/13 Status: Ordered Cialis 5 mg oral tablet See Instructions, TAKE ONE TABLET BY MOUTH EVERY DAY, # 30 tabs, eRx: [facility] #[id number], TAKE ONE TABLET BY MOUTH EVERY DAY Special Instructions: TAKE ONE TABLET BY MOUTH EVERY DAY Start Date: 07/31/14 Status: Ordered Effient 10 mg oral tablet See Instructions, TAKE ONE TABLET BY MOUTH EVERY DAY, # 90 tabs, eRx: [facility] #[id number], TAKE ONE TABLET BY MOUTH EVERY DAY Special Instructions: TAKE ONE TABLET BY MOUTH EVERY DAY Start Date: 05/05/14 Status: Ordered Fish Oil 1000 mg oral capsule 1 caps, Oral, BID, # 60 caps, 0 Refill(s) Start Date: 12/23/13 Status: Ordered Lipofen 150 mg oral capsule See Instructions, TAKE ONE CAPSULE BY MOUTH EVERY DAY WITH FOOD, # 90 caps, 2 Refill(s), eRx: [facility] #[id number], TAKE ONE CAPSULE BY MOUTH EVERY DAY WITH FOOD Special Instructions: TAKE ONE CAPSULE BY MOUTH EVERY DAY WITH FOOD Start Date: 02/06/14 Status: Ordered metFORMIN 1000 mg oral tablet See Instructions, TAKE ONE TABLET BY MOUTH TWICE A DAY WITH MORNING AND EVENING MEALS, # 60 tabs, 1 Refill(s), eRx: [facility] #[id number], TAKE ONE TABLET BY MOUTH TWICE A DAY WITH MORNING AND EVENING MEALS Special Instructions: TAKE ONE TABLET BY MOUTH TWICE A DAY WITH MORNING AND EVENING MEALS Start Date: 06/02/14 Status: Ordered metFORMIN 1000 mg oral tablet See Instructions, TAKE ONE TABLET BY MOUTH TWICE A DAY WITH MORNING AND EVENING MEALS, # 60 tabs, 2 Refill(s), eRx: [facility] #[id number], TAKE ONE TABLET BY MOUTH TWICE A DAY WITH MORNING AND EVENING MEALS Special Instructions: TAKE ONE TABLET BY MOUTH TWICE A DAY WITH MORNING AND EVENING MEALS Start Date: 03/10/14 Status: Ordered metFORMIN 1000 mg oral tablet See Instructions, TAKE ONE TABLET BY MOUTH TWICE A DAY WITH MORNING AND EVENING MEALS, # 60 tabs, 2 Refill(s), eRx: [facility] #[id number], TAKE ONE TABLET BY MOUTH TWICE A DAY WITH MORNING AND EVENING MEALS Special Instructions: TAKE ONE TABLET BY MOUTH TWICE A DAY WITH MORNING AND EVENING MEALS Start Date: 12/16/13 Status: Ordered Metoprolol Tartrate 25 mg oral tablet See Instructions, TAKE ONE TABLET BY MOUTH TWICE A DAY, # 60 tabs, eRx: [facility] #[id number], TAKE ONE TABLET BY MOUTH TWICE A DAY Special Instructions: TAKE ONE TABLET BY MOUTH TWICE A DAY Start Date: 07/10/14 Status: Ordered niacin 500 mg oral tablet 1 tabs, Oral, Daily, 0 Refill(s) Start Date: 12/23/13 Status: Ordered Norvasc 2.5 mg oral tablet See Instructions, TAKE ONE TABLET BY MOUTH ONE TIME A DAY, # 30 tabs, eRx: [facility] #[id number], TAKE ONE TABLET BY MOUTH ONE TIME A DAY Special Instructions: TAKE ONE TABLET BY MOUTH ONE TIME A DAY Start Date: 07/31/14 Status: Ordered Simcor 500 mg-20 mg oral tablet, extended release See Instructions, TAKE ONE TABLET BY MOUTH EVERY NIGHT AT BEDTIME, # 90 unknown unit, eRx: [facility] #[id number], TAKE ONE TABLET BY MOUTH EVERY NIGHT AT BEDTIME Special Instructions: TAKE ONE TABLET BY MOUTH EVERY NIGHT AT BEDTIME Start Date: 06/25/14 Status: Ordered Vitamin D3 5000 intl units oral tablet 1 tabs, Oral, Daily, # 100 tabs, 0 Refill(s) Start Date: 12/23/13 Status: Ordered Zoloft 50 mg oral tablet See Instructions, TAKE ONE TABLET BY MOUTH EVERY DAY, # 30 tabs, eRx: [facility] #[id number], TAKE ONE TABLET BY MOUTH EVERY DAY Special Instructions: TAKE ONE TABLET BY MOUTH EVERY DAY Start Date: 07/31/14 Status: Ordered Results No data available for this section Immunizations Vaccine Date Refusal Reason influenza virus vaccine, inactivated 03/07/14 pneumococcal 23-polyvalent vaccine 04/21/10 Procedures Procedure Date Related Diagnosis Body Site Angioplasty Cardiac catheterization x5 Stent x3 Social History Social History Type Response Smoking Status Former smoker; Type: Cigarettes Assessment and Plan Extracted from: Title: Ambulatory Patient Education Author: Zhao Butler MD Date: 08/05 Family Medicine Cholesterol Cholesterol is a white, waxy, fat-like protein needed by your body in small amounts. The liver makes all the cholesterol you need. It is carried from the liver by the blood through the blood vessels. Deposits (plaque ) may build up on blood vessel frank. This makes the arteries narrower and stiffer. Plaque increases the risk for heart attack and stroke. You cannot feel your cholesterol level even if it is very high. The only way to know is by a blood test to check your lipid (fats) levels. Once you know your cholesterol levels, you should keep a record of the test results. Work with your caregiver to to keep your levels in the desired range. WHAT THE RESULTS MEAN: Total cholesterol is a rough measure of all the cholesterol in your blood. LDL is the so-called bad cholesterol. This is the type that deposits cholesterol in the frank of the arteries. You want this level to be low. HDL is the good cholesterol because it cleans the arteries and carries the LDL away. You want this level to be high. Triglycerides are fat that the body can either burn for energy or store. High levels are closely linked to heart disease. DESIRED LEVELS: Total cholesterol below 200. LDL below 100 for people at risk, below 70 for very high risk. HDL above 50 is good, above 60 is best. Triglycerides below 150. HOW TO LOWER YOUR CHOLESTEROL: Diet. Choose fish or white meat chicken and turkey, roasted or baked. Limit fatty cuts of red meat, fried foods, and processed meats, such as sausage and lunch meat. Eat lots of fresh fruits and vegetables. Choose whole grains, beans, pasta , potatoes and cereals. Use only small amounts of olive, corn or canola oils. Avoid butter, mayonnaise, shortening or palm kernel oils. Avoid foods with trans-fats. Use skim/nonfat milk and low-fat/nonfat yogurt and cheeses. Avoid whole milk, cream, ice cream, egg yolks and cheeses. Healthy desserts include marcella food cake, abel snaps, animal crackers, hard candy, popsicles, and low-fat/ nonfat frozen yogurt. Avoid pastries, cakes, pies and cookies. Exercise. A regular program helps decrease LDL and raises HDL. Helps with weight control. Do things that increase your activity level like gardening, walking, or taking the stairs. Medication. May be prescribed by your caregiver to help lowering cholesterol and the risk for heart disease. You may need medicine even if your levels are normal if you have several risk factors. HOME CARE INSTRUCTIONS Follow your diet and exercise programs as suggested by your caregiver. Take medications as directed. Have blood work done when your caregiver feels it is necessary. MAKE SURE YOU: Understand these instructions. Will watch your condition. Will get help right away if you are not doing well or get worse. Document Released: 02/14/2002 Document Revised: 08/13/2012 Document Reviewed: [facility] [place] Patient Information 2014 [employer]. DASH Diet The DASH diet stands for "Dietary Approaches to Stop Hypertension." It is a healthy eating plan that has been shown to reduce high blood pressure ( hypertension ) in as little as 14 days, while also possibly providing other significant health benefits. These other health benefits include reducing the risk of breast cancer after menopause and reducing the risk of type 2 diabetes, heart disease, colon cancer, and stroke. Health benefits also include weight loss and slowing kidney failure in patients with chronic kidney disease. DIET GUIDELINES Limit salt (sodium ). Your diet should contain less than 1500 mg of sodium daily. Limit refined or processed carbohydrates. Your diet should include mostly whole grains. Desserts and added sugars should be used sparingly. Include small amounts of heart-healthy fats. These types of fats include nuts, oils, and tub margarine. Limit saturated and trans fats. These fats have been shown to be harmful in the body. CHOOSING FOODS The following food groups are based on a 2000 calorie diet. See your Registered Dietitian for individual calorie needs. Grains and Grain Products (6 to 8 servings daily) Eat More Often: Whole-wheat bread, brown rice, whole-grain or wheat pasta, quinoa, popcorn without added fat or salt (air popped). Eat Less Often: White bread, white pasta, white rice, cornbread. Vegetables (4 to 5 servings daily) Eat More Often: Fresh, frozen, and canned vegetables. Vegetables may be raw , steamed, roasted, or grilled with a minimal amount of fat. Eat Less Often/Avoid: Creamed or fried vegetables. Vegetables in a cheese sauce. Fruit (4 to 5 servings daily) Eat More Often: All fresh, canned (in natural juice), or frozen fruits. Dried fruits without added sugar. One hundred percent fruit juice ( cup [237 mL] daily). Eat Less Often: Dried fruits with added sugar. Canned fruit in light or heavy syrup. Lean Meats, Fish, and Poultry (2 servings or less daily. One serving is 3 to 4 oz [85-114 g]). Eat More Often: Ninety percent or leaner ground beef, tenderloin, sirloin. Round cuts of beef, chicken breast, turkey breast. All fish. [place], bake, or broil your meat. Nothing should be fried. Eat Less Often/Avoid: Fatty cuts of meat, turkey, or chicken leg, thigh, or wing. Fried cuts of meat or fish. Dairy (2 to 3 servings) Eat More Often: Low-fat or fat-free milk, low-fat plain or light yogurt, reduced-fat or part-skim cheese. Eat Less Often/Avoid: Milk (whole, 2%).Whole milk yogurt. Full-fat cheeses. Nuts, Seeds, and Legumes (4 to 5 servings per week) Eat More Often: All without added salt. Eat Less Often/Avoid: Salted nuts and seeds, canned beans with added salt. Fats and Sweets (limited) Eat More Often: Vegetable oils, tub margarines without trans fats, sugar- free gelatin. Mayonnaise and salad dressings. Eat Less Often/Avoid: Coconut oils, palm oils, butter, stick margarine, cream, half and half, cookies, candy, pie. FOR MORE INFORMATION The Dash Diet Eating Plan: www.dashdiet.org Document Released: 05/10/2012 Document Revised: 08/13/2012 Document Reviewed: [facility] [place] Patient Information 2014 [employer] [facility]. Diabetes and Exercise Regular exercise is important and can help: Control blood glucose (sugar ). Decrease blood pressure. Control blood lipids (cholesterol, triglycerides ). Improve overall health. BENEFITS FROM EXERCISE Improved fitness. Improved flexibility. Improved endurance. Increased bone density. Weight control. Increased muscle strength. Decreased body fat. Improvement of the body's use of insulin, a hormone. Increased insulin sensitivity. Reduction of insulin needs. Reduced stress and tension. Helps you feel better. People with diabetes who add exercise to their lifestyle gain additional benefits, including: Weight loss. Reduced appetite. Improvement of the body's use of blood glucose. Decreased risk factors for heart disease: Lowering of cholesterol and triglycerides. Raising the level of good cholesterol (high-density lipoproteins, HDL ). Lowering blood sugar. Decreased blood pressure. TYPE 1 DIABETES AND EXERCISE Exercise will usually lower your blood glucose. If blood glucose is greater than 240 mg/dl, check urine ketones. If ketones are present, do not exercise. Location of the insulin injection sites may need to be adjusted with exercise. Avoid injecting insulin into areas of the body that will be exercised. For example, avoid injecting insulin into: The arms when playing tennis. The legs when jogging. For more information, discuss this with your caregiver. Keep a record of: Food intake. Type and amount of exercise. Expected peak times of insulin action. Blood glucose levels. Do this before, during, and after exercise. Review your records with your caregiver. This will help you to develop guidelines for adjusting food intake and insulin amounts. TYPE 2 DIABETES AND EXERCISE Regular physical activity can help control blood glucose. Exercise is important because it may: Increase the body's sensitivity to insulin. Improve blood glucose control. Exercise reduces the risk of heart disease. It decreases serum cholesterol and triglycerides. It also lowers blood pressure. Those who take insulin or oral hypoglycemic agents should watch for signs of hypoglycemia. These signs include dizziness, shaking, sweating, chills, and confusion. Body water is lost during exercise. It must be replaced. This will help to avoid loss of body fluids (dehydration ) or heat stroke. Be sure to talk to your caregiver before starting an exercise program to make sure it is safe for you. Remember, any activity is better than none. Document Released: 08/11/2004 Document Revised: 08/13/2012 Document Reviewed: [facility] Patient Information 2014 [facility]. Diabetes and Foot Care Diabetes may cause you to have a poor blood supply (circulation ) to your legs and feet. Because of this, the skin may be thinner, break easier, and heal more slowly. You also may have nerve damage in your legs and feet causing decreased feeling. You may not notice minor injuries to your feet that could lead to serious problems or infections. Taking care of your feet is one of the most important things you can do for yourself. HOME CARE INSTRUCTIONS Do not go barefoot. Bare feet are easily injured. Check your feet daily for blisters, cuts, and redness. Wash your feet with warm water (not hot) and mild soap. Pat your feet and between your toes until completely dry. Apply a moisturizing lotion that does not contain alcohol or petroleum jelly to the dry skin on your feet and to dry brittle toenails. Do not put it between your toes. Trim your toenails straight across. Do not dig under them or around the cuticle. Do not cut corns or calluses, or try to remove them with medicine. Wear clean cotton socks or stockings every day. Make sure they are not too tight. Do not wear knee high stockings since they may decrease blood flow to your legs. Wear leather shoes that fit properly and have enough cushioning. To break in new shoes, wear them just a few hours a day to avoid injuring your feet. Wear shoes at all times, even in the house. Do not cross your legs. This may decrease the blood flow to your feet. If you find a minor scrape, cut, or break in the skin on your feet, keep it and the skin around it clean and dry. These areas may be cleansed with mild soap and water. Do not use peroxide, alcohol, iodine or Merthiolate. When you remove an adhesive bandage, be sure not to harm the skin around it. If you have a wound, look at it several times a day to make sure it is healing. Do not use heating pads or hot water bottles. Ramos can occur. If you have lost feeling in your feet or legs, you may not know it is happening until it is too late. Report any cuts, sores or bruises to your caregiver. Do not wait! SEEK MEDICAL CARE IF: You have an injury that is not healing or you notice redness, numbness, burning, or tingling. Your feet always feel cold. You have pain or cramps in your legs and feet. SEEK IMMEDIATE MEDICAL CARE IF: There is increasing redness, swelling, or increasing pain in the wound. There is a red line that goes up your leg. Pus is coming from a wound. You develop an unexplained oral temperature above 102 F (38.9 C), or as your caregiver suggests. You notice a bad smell coming from an ulcer or wound. MAKE SURE YOU: Understand these instructions. Will watch your condition. Will get help right away if you are not doing well or get worse. Document Released: 05/19/2001 Document Revised: 08/13/2012 Document Reviewed: [facility] Patient Information 2014 [employer] [facility]. No follow up information was provided. Extracted from: Title: Office Visit Note Author: Zhao Butler MD Date: 08/05/14 Assessment/Plan Diabetes mellitus type 2 Continue with the current medications. lab tomorrow fasting. Ordered: Office Visit Level 4 Est 95414 Gout Ordered: Office Visit Level 4 Est 42480 Uric Acid Hypercholesterolemia Ordered: Lipid Panel Office Visit Level 4 Est 85905 Hypertension Ordered: CBC w/ Differential Comprehensive Metabolic Panel Office Visit Level 4 Est 74143
--- OUTSIDE RECORDS SUMMARY | 2016-09-12 21:54 | XMS REPORT | Referral Summary ---
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 Phone Logan Butler Primary Care Physician [phone] Encounter VC Date(s): 03/10/15 - 03/10/15 [facility] [address] [place] [id number] Discharge Disposition: 01-Home or Self Care [...] BY MOUTH DAILY, # 90 tabs, eRx: [facility] #[id number], TAKE ONE TABLET BY MOUTH DAILY Start Date: 02/04/15 Status: Ordered allopurinol 300 mg oral tablet 1 tabs, Oral, Daily, # 30 tabs, 0 Refill(s) Start Date: 12/23/13 Status: Ordered Amaryl 2 mg oral tablet 1 tabs, Oral, BID, Patient needs labwork done in 3 months., # 60 tabs, 2 Refill( s), Pharmacy: [facility] #[id number], 1 tabs Oral BID,Instr:Patient needs labwork done in 3 months. Start Date: 09/29/14 Status: Ordered Aspir 81 81 mg, Oral, Daily, 0 Refill(s) Start Date: 12/23/13 Status: Ordered Cialis 5 mg oral tablet See Instructions, TAKE ONE TABLET BY MOUTH EVERY DAY, # 30 tabs, 2 Refill(s), Pharmacy: [facility] #[id number], TAKE ONE TABLET BY MOUTH EVERY DAY Start Date: 12/11/14 Status: Ordered Effient 10 mg oral tablet See Instructions, TAKE ONE TABLET BY MOUTH EVERY DAY NEEDS APPT PRIOR TO ANY ADDITIONAL REFILLS, # 30 tabs, 0 Refill(s), Pharmacy: [facility] #[id number], TAKE ONE TABLET BY MOUTH EVERY DAY; NEEDS APPT PRIOR TO ANY ADDITIONAL REFILLS Start Date: 02/24/15 Status: Ordered Fish Oil 1000 mg oral capsule 1 caps, Oral, BID, # 60 caps, 0 Refill(s) Start Date: 12/23/13 Status: Ordered Lipofen 150 mg oral capsule See Instructions, TAKE ONE CAPSULE BY MOUTH DAILY WITH FOOD, # 90 caps, eRx: [facility] #[id number], TAKE ONE CAPSULE BY MOUTH DAILY WITH FOOD Start Date: 02/10/15 Status: Ordered metFORMIN 1000 mg oral tablet See Instructions, TAKE ONE TABLET BY MOUTH TWICE A DAY WITH MORNING AND EVENING MEALS, # 60 tabs, 1 Refill(s), eRx: [facility] #[id number], TAKE ONE TABLET BY MOUTH TWICE A DAY WITH MORNING AND EVENING MEALS Start Date: 02/04/15 Status: Ordered Metoprolol Tartrate 25 mg oral tablet 1 tabs, Oral, BID, # 180 tabs, 1 Refill(s), Pharmacy: [facility] #[id number], 1 tabs Oral BID,x90 days Start Date: 09/12/14 Stop Date: 12/11/14 Status: Ordered Norvasc 2.5 mg oral tablet See Instructions, TAKE ONE TABLET BY MOUTH ONE TIME A DAY, # 30 tabs, 2 Refill(s ), eRx: [facility] #[id number], TAKE ONE TABLET BY MOUTH ONE TIME A DAY Start Date: 02/23/15 Status: Ordered Simcor 500 mg-20 mg oral tablet, extended release See Instructions, TAKE ONE TABLET BY MOUTH EVERY NIGHT AT BEDTIME, # 90 unknown unit, eRx: [facility] #[id number], TAKE ONE TABLET BY MOUTH EVERY NIGHT AT BEDTIME Start Date: 12/19/14 Status: Ordered Vitamin D3 5000 intl units oral tablet 1 tabs, Oral, Daily, # 100 tabs, 0 Refill(s) Start Date: 12/23/13 Status: Ordered Zoloft 100 mg oral tablet 100 mg 1 tabs, Oral, Daily, # 30 tabs, 4 Refill(s), Pharmacy: [facility] # [id number], 1 tabs Oral Daily Start Date: 03/10/15 Status: Ordered Zoloft 50 mg oral tablet See Instructions, TAKE ONE TABLET BY MOUTH EVERY DAY, # 30 tabs, eRx: [facility] #[id number], TAKE ONE TABLET BY MOUTH EVERY DAY Start Date: 01/26/15 Status: Ordered Results Chemistry Most recent to [...] Author: Zhao Butler MD Date: 03/10/15 Family Medicine Depression Depression refers to feeling sad, low, [...] serious side effect. FOR MORE INFORMATION National [place] on Mental Illness: www.ezequiel.org National [place] of Mental Health: www.nimh.nih.gov Document Released: 05/19/2001 Document Revised: 10/06/2014 Document Reviewed: [employer] Patient Information 2015 [employer]. This information is not intended to replace [...] left untreated, can lead to tooth loss. [place] your teeth twice a day, floss, and [...] Released: 02/07/2012 Document Revised: 10/06/2014 Document Reviewed: [employer] Patient Information 2015 [facility]. This information is not intended to replace [...] month. Ordered: Office Visit Level 3 Est 22955 Diabetes mellitus type 2 Continue the current medications and encouraged to check sugars. Ordered: Hemoglobin A1c Office Visit Level 3 Est 64227 Hypercholesterolemia Ordered: Cholesterol HDL LDL Direct Office Visit Level 3 Est 42743 Triglycerides Hypertension Ordered: Comprehensive Metabolic Panel Office Visit Level 3 Est 82155 Uric Acid Orders: sertraline, 100 mg 1 tabs, Oral, Daily, # 30 tabs, 4 Refill(s), Pharmacy: [facility] #[id number], 1 tabs Oral Daily
--- NOTE | 2016-09-12 22:10 | NUR ---
LOBBY PT IS SEATED IN LOBBY WITH HIS , NO S/S OF ACUTE DISTRESS.
[2016-09-12 22:35] VITALS: BP 148/83; PULSE 86; RESP 16; TEMP 98.3; O2SAT 95; Ht 168.9 cm; Wt 105.5 kg
--- NOTE | 2016-09-12 23:10 | NUR ---
[facility] PT REQUESTS TO LEAVE AT THIS TIME. [facility] FORM IS REVIEWED WITH PT, SIGNATURE OBTAINED AND UNDERSTANDING IS VOICED. PT LEAVES AMBULATORY.
--- OUTSIDE RECORDS SUMMARY | 2016-09-13 00:11 | XMS REPORT | Continuity of Care Document ---
Author Author [facility] Organization [facility] Address Unknown Phone Unavailable Support Name Relationship Address Phone FREDI NAVARRETE MD Caregiver [address] [place] [phone] YI CASTILLO MD Caregiver [address] [place] [address] [place] [phone] PRATIMA TUTTLE Next Of Kin [address] [place] [address] Unavailable Insurance Providers Payer Name Policy Number Subscriber Name Relationship [facility] [id number] Pratima Tuttle 01 Spouse Advance Directives Directive [...] 02/21/14 Active Multivitamin Unknown Dose 02/21/14 Active [place]-3 Fatty Acids Unknown Dose 02/21/14 Active Cholecalciferol [...] F (96.8 - 99.1) Temperature (Calculated Celsius) 36.83481 degrees C (36.0 - 37.3) Pulse Rate [...] Has specimen been collected/obtained? Y Urine Specific [place] February 21, 2014 3:25pm 1.025 - Has [...] 2013 3:55pm Name: SARIAH TUTTLE Unit #: [id number] : 1945 Sex: M Loc / Svc: ED DOS: Signed Report #: [id number] DIAGNOSTIC IMAGING REPORT TYPE OF EXAM: CT [...] Encounters Encounter Location Date/Time Departed Emergency Room [facility] 02/21/14 2:04pm [facility] 02/11/14 1:27pm [facility] 01/28/14 2:28pm [facility] 01/20/14 10:56am [facility] 01/16/14 10:59am [facility] 01/13/14 1:56pm [facility] 01/10/14 10:29am [facility] 01/07/14 1:30pm [facility] 01/03/14 9:13am [facility] 12/31/13 1:24pm [facility] 12/27/13 8:52am [facility] 12/25/13 1:56pm [facility] 12/24/13 2:08pm Recent Diagnosis
--- OUTSIDE RECORDS SUMMARY | 2016-09-13 00:11 | XMS REPORT | Continuity of Care Document ---
Author Author [facility] Organization [facility] Address Unknown Phone Unavailable Allergies Active [...] 04/02/2012 Aryan Shepard MD Final 414.01 COR -[place]KE VESSEL 04/02/2012 Aryan Shepard MD Final 592.0 [...] 05/08/2012 Aryan Shepard MD Final 414.01 COR -[place] VESSEL 05/08/2012 Aryan Shepard MD Final 592.1 URETERAL CALCULUS 05/08/2012 Aryan Shepard MD Final V85.31 BMI 31.0-31.9 ADULT 05/30/2012 Aryan Shepard MD Final 574.20 GB CALCULUS W/O CHOL 05/30/2012 Aryan Shepard MD Final 592.0 KIDNEY CALCULUS 05/30/2012 Aryan Shepard MD Final 594.1 BLADDER CALCULUS NEC 05/30/2012 Aryan Shepard MD Final 600.00 PROS HYPERTR S OBST/LUTS Procedures Code Description [place] [address] FRAGMENTING OF KIDNEY STONE Aryan Shepard MD 04/02/2012 25694 CYSTOSCOPY AND TREATMENT Aryan Shepard MD 04/02/2012 58331 CYSTOSCOPY AND TREATMENT Aryan Shepard MD 05/08/2012 70007 CYSTOURETERO W/LITHOTRIPSY Aryan Shepard MD 05/08/2012 Results Encounters ACCT No. Visit Date/Time Discharge Status Pt. Type Provider Facility Loc./Unit Complaint [id number] 05/30/2012 07:49:00 2011 23:59:59 CLS Outpatient Aryan Shepard MD [facility] [place] [id number] 05/08/2012 07:50:00 2011 23:59:59 CLS Outpatient Aryan Shepard MD [facility] on [place] [id number] 04/02/2012 06:06:00 2011 10:50:00 DIS Outpatient Aryan Shepard MD [facility] [place] [id number] 03/26/2012 12:53:00 2011 23:59:59 CLS Outpatient Aryan Shepard MD [facility] [id number] 05/24/2012 09:08:00 Document Registration
== END 2016-09-12 23:10 | disposition left against medical advice (07) ==
LOC: ED 21:49
DX: Z53.21 Procedure and treatment not carried out due to patient leaving prior to being seen by health care provider (principal)